=== PATIENT | male | born 1940 | race Caucasian/White ===

== ENCOUNTER 2019-12-31 12:38 | Outpatient (CLI) | payer MEDICARE, SELFPAY ==
[2019-12-31 13:36] LABS: Prostate Specific Antigen 0.17 ng/mL (0-4)
[2019-12-31] MEDS: lidocaine 1% INJ 20 mL INJECTION (15:40)
[2019-12-31] MEDS: goserelin acetate 10.8 mg Implant IM (15:52)
--- NOTE | 2019-12-31 16:36 | ONC FU_ITS ---
Dr. Castillo follow up note Patient: Tonye Rodriguez Unit #: [id number]: 1940 Dicatated By: Louis Castillo M.D.Date of Visit:Dec 31, 2019 Onc Med Follow-up/Prog Note History of Present Illness: Mr. Toney rodriguez, 79-year-old gentleman with history of process cancer initially diagnosed in 2004 at that time he underwent retropubic prostatectomy no further treatment was considered but observation alone and he did well until March 2017 when he developed abdominal pain and diagnosed with acute appendicitis for which he underwent appendicectomy and preop labs which include PSA showed his PSA was 3 compared to 1 earlier, during follow-up , at that time he was referred to Dr. Markham and he was observed in urology clinic with serial PSA levels and LUDY on a regular basis. In June 2017 his PSA was 7.4 And on 09/29/2017 his PSA was 10.2 and repeat on 10/05/2017 it was 13.3 and on 02/27/2018 his PSA gone up to 20.7 with normal LUDY and at that time CT scan of abdomen pelvis was ordered which shows no pelvic lymphadenopathy no osteoblastic or osteolytic bone disease. Earlier on 11/24/2017 he had bone scan done which shows no evidence of bone metastases.Elevated PSA but stable now being observed with active surveillance Follow-up bone scan done on 01/29/2019 shows no evidence of bone metastases and CT scan of abdomen pelvis done on 01/29/2019 showed status Post prostatectomy, no evidence of pelvic or retroperitoneal lymphadenopathy. CT PET scan done on 03/19/2019 showed prostate bed recurrence and urinary bladder involvement and PSA checked done 03/26/2019 is 26.79 Started on ADT with Casodex/Zoladex on 04/01/2019 concurrent radiation therapy to the prostate bed was added on 04/15/2019 and f/u PSA on 04/30/2019 was 2.58 compared to pretreatment PSA 26.7 On 03/26/2019 Came For follow-up, denies any specific complaints except occasionally hot flashes otherwise no fever or chills, no diarrhea constipation, no dysuria. Tolerating Zoladex well otherwise Medications: Ascorbic Acid 1 Tablet (of 1000 mg) Oral daily, Aspirin 1 Tablet (of 325 mg) Tablet, enteric coated Oral daily, AZO Urinary Pain Relief 1 Tablet (of 95 mg) Tablet Oral daily PRN, Calcium + D3 1 Tablet (of 600-800 mg - Units) Oral daily, Cholecalciferol 1 Capsule (of 4000 Units) Oral daily, Lopid 1 Tablet (of 600 mg) Oral b.i.d., Men 50 plus multivitamin Tablet, Metoprolol Succinate ER 1 Tablet (of 50 mg) Tablet SR 24 HR Oral daily, Norvasc 1 Tablet (of 5 mg) Oral daily, Potassium Chloride Jodi ER 2 Tablet (of 20 meq) Tablet, controlled release Oral b.i.d., Probiotic oral 1 Tablet daily, Vitamin E 1 Capsule (of 400 Units) Oral daily, Zantac 1 Tablet (of 300 mg) Oral daily, Zocor 1 Tablet (of 20 mg) Oral at bedtime Allergies: chocolate Review of Systems: Constitutional - Appetite is fair and weight is stable. No fever, chills, hot flashes, or night sweats. Energy level is good, ENMT - No sinus congestion/drainage. No mouth sores. No sore throat or difficulty swallowing, Hematologic/Lymphatic - No abnormal bruising or bleeding, Respiratory - No shortness of breath. No cough. No pleuritic pain or hemoptysis, Cardiovascular - No angina pain. No palpitations, Gastrointestinal - No nausea or vomiting. No heartburn or acid reflux. No diarrhea or constipation. No blood in the stool or black stools, Genitourinary (M) - Pt reports frequent urination with occasional incontinence, Musculoskeletal - No joint or bone pain, Neurologic - No headache or dizziness. No numbness/paresthesias or other focal neurologic symptoms, Psychiatric - No anxiety or depression. No insomnia. Vital Signs: Performed on Dec 31, 2019 14:30 Height - 68.00 in Weight - 182.4 lbs (LOW) BSA - 1.97 sq.m BMI - 27.73 Temperature - 98.6 F Pulse - 68 /min Respiration - 18 /min BP - 151/77 mm(hg) (HIGH) O2 Sat - 98 % Pain - 0 Performance Status: 0 - Fully active, able to carry on all predisease activities without restrictions. (ECOG) Physical Examination: ENMT - No oral exudates, ulcers, masses, thrush or mucositis. Oropharynx clear. Tongue normal, Respiratory - Lungs are clear to auscultation without rhonchi or wheezing, Cardiovascular - Regular rate and rhythm of heart, Abdomen - Non-tender, non-distended, Good bowel sounds. No guarding or rebound tenderness. No pulsatile masses, Extremities - no edema. Lab/Imaging: Test performed on Oct 01, 2019 13:00 Testosterone, Total 4.1 ng/dL PSA 0.30 ng/mL Impression: History of prostrate cancer status post retropubic prostatectomy in 2004 at that time no adjuvant therapy was considered. Now with biochemical recurrence with elevated PSA level and normal bone scan and CT scan of abdomen pelvis PSA checked on 02/27/2018 was 20.7 and bone scan done on 11/24/2017 showed no evidence of bone metastases CT scan of abdomen pelvis done on 03/08/2018 showed no evidence of pelvic lymphadenopathy or local recurrence CT PET scan done on 03/19/2019 showed there is intense FDG uptake in the central portion of the prostate, including prosthetic urethra, posterior aspect of the urinary bladder to the right of the midline and in the anterior aspect of urinary bladder maximum SUV of urinary bladder focuses 6.32 posteriorly and 5.40 superior and prostrate bed 6.79 PSA checked on 03/26/2019 has gone up to 26.79 compared to 23.19 on 01/29/2019 and 18.10 on 05/31/2018 Started on neoadjuvant Casodex/Zoladex on 04/01/2019 and concurrent radiation therapy to the prostate bed added on 04/15/2019 and a follow-up PSA done on 04/30/2019 showed excellent response, it was 2.58 compared to 26.7 On 03/26/2019 Casodex was used to prevent tumor flare and was discontinued after one month on 04/30/2019 to minimize ADT related toxicity Plan: Discussed with patient regarding his labs PSA 0.17, testosterone 5.0 Clinically, patient is doing well, with no signs symptoms suggestive of recurrence of disease, follow-up lab shows further improvement his PSA now down to 0.17 compared to 0.30 on 10/01/2090 tolerating 3 monthly Zoladex well, we'll proceed with next dose today Return to clinic in 3 months with a PSA and Zoladex injection. We will also review his DEXA scan and make plan accordingly. In the meantime continue vitamin D and calcium supplement. Signed By: Louis Castillo M.D. <<Signature on File>>
== END 2019-12-31 12:39 | disposition home or self-care (01) ==
LOC: ONCMED 12:42
PROVIDERS: Family Provider Family Medicine; PCP Family Medicine; Visit Provider Internal Medicine Hematology & Oncology
DX: C61 Malignant neoplasm of prostate (principal); C79.11 Secondary malignant neoplasm of bladder; Z79.818 Long term (current) use of other agents affecting estrogen receptors and estrogen levels; Z79.899 Other long term (current) drug therapy; Z90.79 Acquired absence of other genital organ(s); Z92.3 Personal history of irradiation
CPT/HCPCS: 84153; 84403; 96372; 96402; 99214; J2001; J9202

== ENCOUNTER 2020-04-01 14:15 | Outpatient (CLI) | payer MEDICARE, SELFPAY ==
[2020-04-01] MEDS: lidocaine 1% INJ 20 mL INJECTION (16:26)
[2020-04-01] MEDS: goserelin acetate 10.8 mg Implant IM (16:27)
--- NOTE | 2020-04-01 16:37 | ONC FU_ITS ---
Dr. Castillo follow up note Patient: Toney Rodriguez Unit #: [id number]: 1940 Dicatated By: Louis Castillo M.D.Date of Visit:Apr 01, 2020 Onc Med Follow-up/Prog Note History of Present Illness: Mr. Toney rodriguez, 79-year-old gentleman with history of process cancer initially diagnosed in 2004 at that time he underwent retropubic prostatectomy no further treatment was considered but observation alone and he did well until March 2017 when he developed abdominal pain and diagnosed with acute appendicitis for which he underwent appendicectomy and preop labs which include PSA showed his PSA was 3 compared to 1 earlier, during follow-up , at that time he was referred to Dr. Markham and he was observed in urology clinic with serial PSA levels and LUDY on a regular basis. In June 2017 his PSA was 7.4 And on 09/29/2017 his PSA was 10.2 and repeat on 10/05/2017 it was 13.3 and on 02/27/2018 his PSA gone up to 20.7 with normal LUDY and at that time CT scan of abdomen pelvis was ordered which shows no pelvic lymphadenopathy no osteoblastic or osteolytic bone disease. Earlier on 11/24/2017 he had bone scan done which shows no evidence of bone metastases.Elevated PSA but stable now being observed with active surveillance Follow-up bone scan done on 01/29/2019 shows no evidence of bone metastases and CT scan of abdomen pelvis done on 01/29/2019 showed status Post prostatectomy, no evidence of pelvic or retroperitoneal lymphadenopathy. CT PET scan done on 03/19/2019 showed prostate bed recurrence and urinary bladder involvement and PSA checked done 03/26/2019 is 26.79 Started on ADT with Casodex/Zoladex on 04/01/2019 concurrent radiation therapy to the prostate bed was added on 04/15/2019 and f/u PSA on 04/30/2019 was 2.58 compared to pretreatment PSA 26.7 On 03/26/2019 Came for follow-up, denies any specific complaint except occasional hot flashes and mood swings and testicular atrophy. Other than that no fever chills no nausea or vomiting no diarrhea constipation no hematuria or dysuria. Tolerating Zoladex well Medications: Ascorbic Acid 1 Tablet (of 1000 mg) Oral daily, Aspirin 1 Tablet (of 325 mg) Tablet, enteric coated Oral daily, AZO Urinary Pain Relief 1 Tablet (of 95 mg) Tablet Oral daily PRN, Calcium + D3 1 Tablet (of 600-800 mg - Units) Oral daily, Cholecalciferol 1 Capsule (of 4000 Units) Oral daily, Lopid 1 Tablet (of 600 mg) Oral b.i.d., Men 50 plus multivitamin Tablet, Metoprolol Succinate ER 1 Tablet (of 50 mg) Tablet SR 24 HR Oral daily, Norvasc 1 Tablet (of 5 mg) Oral daily, Potassium Chloride Jodi ER 2 Tablet (of 20 meq) Tablet, controlled release Oral b.i.d., Probiotic oral 1 Tablet daily, Vitamin E 1 Capsule (of 400 Units) Oral daily, Zantac 1 Tablet (of 300 mg) Oral daily, Zocor 1 Tablet (of 20 mg) Oral at bedtime Allergies: chocolate Review of Systems: Review of Systems is not available for this patient. Vital Signs: Performed on Apr 01, 2020 15:16 Height - 68.00 in Weight - 182.4 lbs BSA - 1.97 sq.m BMI - 27.73 Temperature - 97.7 F (LOW) Pulse - 60 /min Respiration - 24 /min BP - 150/72 mm(hg) (HIGH) O2 Sat - 98 % Pain - 0 Performance Status: 0 - Fully active, able to carry on all predisease activities without restrictions. (ECOG) Physical Examination: ENMT - No mouth sores, no thrush, no jaundice, Respiratory - Lungs are clear, Cardiovascular - Regular rate and rhythm of heart, Abdomen - Soft, bowel sounds present, Extremities - No visible edema or rash. Lab/Imaging: Test performed on Dec 31, 2019 12:50 Testosterone, Total 5.0 ng/dL PSA 0.17 ng/mL Impression: History of prostrate cancer status post retropubic prostatectomy in 2004 at that time no adjuvant therapy was considered. Now with biochemical recurrence with elevated PSA level and normal bone scan and CT scan of abdomen pelvis PSA checked on 02/27/2018 was 20.7 and bone scan done on 11/24/2017 showed no evidence of bone metastases CT scan of abdomen pelvis done on 03/08/2018 showed no evidence of pelvic lymphadenopathy or local recurrence CT PET scan done on 03/19/2019 showed there is intense FDG uptake in the central portion of the prostate, including prosthetic urethra, posterior aspect of the urinary bladder to the right of the midline and in the anterior aspect of urinary bladder maximum SUV of urinary bladder focuses 6.32 posteriorly and 5.40 superior and prostrate bed 6.79 PSA checked on 03/26/2019 has gone up to 26.79 compared to 23.19 on 01/29/2019 and 18.10 on 05/31/2018 Started on neoadjuvant Casodex/Zoladex on 04/01/2019 and concurrent radiation therapy to the prostate bed added on 04/15/2019 and a follow-up PSA done on 04/30/2019 showed excellent response, it was 2.58 compared to 26.7 On 03/26/2019 Casodex was used to prevent tumor flare and was discontinued after one month on 04/30/2019 to minimize ADT related toxicity Plan: Discussed with patient regarding his question and concerns, his follow-up PSA is pending. And patient was reassured that most of his symptoms are due to hormonal withdrawal due to ADT and patient said they are tolerable at this point, discussed about treatment option including continue with Zoladex as long as tolerated or if there is a worsening of symptom at that time either change to intermittent therapy versus observation. Patient would prefer to continue treatment for the time being and if there is any worsening of symptom he may consider intermittent therapy approach. We will proceed with his next 3-month dose of Zoladex today and once we have a PSA level available to us, we will call the patient with the results. As far as DEXA scan which was done on August 26, 2019 is concern, patient has osteopenia appropriate to his age, now being treated with vitamin D and calcium we will continue to monitor and if there is a worsening may consider intervention. Return to clinic in 3 months with PSA Signed By: Louis Castillo M.D. <<Signature on File>>
[2020-04-01 18:12] LABS: Prostate Specific Antigen 0.136 ng/mL (0-4)
== END 2020-04-01 14:16 | disposition home or self-care (01) ==
LOC: ONCMED 14:18
PROVIDERS: PCP Family Medicine; Visit Provider Internal Medicine Hematology & Oncology
DX: C61 Malignant neoplasm of prostate (principal); M85.80 Other specified disorders of bone density and structure, unspecified site; Z79.818 Long term (current) use of other agents affecting estrogen receptors and estrogen levels; Z90.79 Acquired absence of other genital organ(s)
CPT/HCPCS: 84153; 96372; 96402; 99214; J2001; J9202

== ENCOUNTER 2020-07-02 13:42 | Outpatient (CLI) | payer MEDICARE, SELFPAY ==
[2020-07-02 15:07] LABS: Prostate Specific Antigen 0.112 ng/mL (0-4)
[2020-07-02] MEDS: lidocaine 1% INJ 20 mL INJECTION (16:00)
[2020-07-02] MEDS: goserelin acetate 10.8 mg Implant IM (16:10)
--- NOTE | 2020-07-11 21:06 | ONC FU_ITS ---
[facility] Patient Note Patient: Toney Rodriguez Unit #: [id number]: 1940 Dictated By: Jeff WuDate of Visit: Jul 02, 2020 Onc MED Follow-Up/Prog Note Chief Complaint: Prostate cancer History of Present Illness: Mr. Rodriguez is a 79-year-old gentleman with history of prostate cancer initially diagnosed in 2004. At that time, he underwent retropubic prostatectomy and no further treatment was considered. He had observation alone and he did well until March 2017. He developed abdominal pain and was diagnosed with acute appendicitis for which he underwent appendicectomy. His preop labs included a PSA and it showed his PSA was 3 compared to 1 earlier. He was referred to Dr. Markham and he was observed in urology clinic with serial PSA levels and LUDY on a regular basis. In June 2017, his PSA was 7.4 and on 09/29/2017 his PSA was 10.2. Repeat PSA on 10/05/2017 was 13.3 and on 02/27/2018 his PSA gone up to 20.7 with normal LUDY. A CT scan of abdomen pelvis was ordered and reported no pelvic lymphadenopathy, no osteoblastic or osteolytic bone disease. On 11/24/2017 he had a bone scan done which reported no evidence of bone metastases. Elevated PSA but stable and he continued with active surveillance. Follow-up bone scan done on 01/29/2019 reported no evidence of bone metastases and CT scan of abdomen pelvis done on 01/29/2019 reported status Post prostatectomy, no evidence of pelvic or retroperitoneal lymphadenopathy. CT PET scan done on 03/19/2019 showed prostate bed recurrence and urinary bladder involvement and PSA checked done 03/26/2019 is 26.79 Started on ADT with Casodex/Zoladex on 04/01/2019 concurrent radiation therapy to the prostate bed was added on 04/15/2019 and f/u PSA on 04/30/2019 was 2.58 compared to pretreatment PSA 26.7 On 03/26/2019 Mr Rodriguez is here today for followup. He is due for Zoladex. He has no new concerns today other than he states that his teeth are breaking off . He states his had like 5 break over the last year. He does see a dentist in 1 week. He states he does good oral hygiene and has for years so is uncertain as to why his teeth would be such a problem all of a sudden. He denies any dramatic changes in his diet. He denies any other problems. He has had no fractures that he is aware of. He is had no bone pain. He denies any fever or chills. He denies mouth sores, sore throat or difficulty swallowing. He states that he has normal bowels and bladder for him. He does frequently urinate at night but this is not new and is stable for him. He denies any lower extremity edema. He remains very active. He states his appetite is good. His ECOG is 0. Past Medical History: Hyperlipidemia Hypertension Past Surgical History: Hydrocele repair Appendectomy in 2017 Colonoscopy in 2009 Prostatectomy in 2004 Esophagus repair in 1940 Allergies: chocolate Medications: Ascorbic Acid 1 Tablet (of 1000 mg) Oral daily Aspirin 1 Tablet (of 325 mg) Tablet, enteric coated Oral daily AZO Urinary Pain Relief 1 Tablet (of 95 mg) Tablet Oral daily PRN Calcium + D3 1 Tablet (of 600-800 mg - Units) Oral daily Cholecalciferol 1 Capsule (of 4000 Units) Oral daily Lopid 1 Tablet (of 600 mg) Oral b.i.d. Men 50 plus multivitamin Tablet Metoprolol Succinate ER 1 Tablet (of 50 mg) Tablet SR 24 HR Oral daily Norvasc 1 Tablet (of 5 mg) Oral daily Potassium Chloride Jodi ER 2 Tablet (of 20 meq) Tablet, controlled release Oral b.i.d. Probiotic oral 1 Tablet daily Vitamin E 1 Capsule (of 400 Units) Oral daily Zantac 1 Tablet (of 300 mg) Oral daily Zocor 1 Tablet (of 20 mg) Oral at bedtime Family History: Mr. Rodriguez's mother at age 80: myocardial infarction, and Cervical Cancer. Mr. Rodriguez's father at age 87: renal failure, and type II diabetes. His maternal grandfather is : Rectal Cancer. Social History: Mr. Rodriguez is and he is retired. Mr. Rodriguez quit smoking 52 years ago but had smoked 1.0 pack/day for 13 years. He drinks occasionally. Mr. Rodriguez reports the following support systems: lives with spouse, significant other, family, or friends. His diet consists of regular meals. Review Of Symptoms: Constitutional Denies fevers, chills, worsening night sweats, excessive fatigue or weight loss. Has hot flashes but stable. Allergic/Immunologic No reactions. Eyes Denies significant visual changes. No diplopia. No amaurosis. ENMT Denies changes in hearing, sore throat, mouth sores, difficulty or changes in swallowing ability, and/or sinus drainage. Concerned about teeth breaking...he states he has broken 5 teeth in the last several months. he is seeing a dentist in the next 1-2 weeks. Hematologic/Lymphatic Denies easy bruising or bleeding. The patient denies any tender or palpable lymph nodes. Respiratory Denies dyspnea on exertion, chest pain, cough or hemoptysis. Denies orthopnea. Cardiovascular Denies anginal chest pain, palpitations or orthopnea. Gastrointestinal Denies nausea, vomiting, diarrhea, GI bleeding, or constipation. Denies change in bowel habits and/or stool color, no heartburn or early satiety. Genitourinary (M) Denies hematuria, dysuria, increased frequency, urgency, hesitancy or incontinence. Musculoskeletal Denies joint pain, swelling or redness. No decreased range of motion. Integumentary Denies chronic rashes, inflammation, ulcerations or skin changes. Neurologic Denies headache, blurred vision, and no areas of focal weakness or numbness. Normal gait. No sensory problems. Psychiatric Denies insomnia, depression, clemente or mood swings. Vital Signs: Performed on Jul 02, 2020 15:06 Height - 68.00 in Weight - 180.6 lbs (LOW) BSA - 1.96 sq.m BMI - 27.46 Temperature - 97.7 F (LOW) Pulse - 62 /min Respiration - 16 /min BP - 146/73 mm(hg) (HIGH) O2 Sat - 97 % Pain - 0,0 - Fully active, able to carry on all predisease activities without restrictions. (ECOG) Physical Examination: Constitutional Alert, oriented, no acute distress. Skin pink, warm and dry. Head Normocephalic; atraumatic. Eyes Conjunctivae and sclerae are clear and without icterus. Pupils are reactive and equal. Neck Supple without masses or thyromegaly. No jugular venous distension. Hematologic/Lymphatic No petechiae or purpura. No tender or palpable lymph nodes in the cervical or supraclavicular areas. Respiratory Lungs are clear to auscultation without rhonchi or wheezing. Cardiovascular Regular rate and rhythm of heart without murmurs,clicks, gallops or rubs. Abdomen Non-tender, non-distended, no masses or ascites. Back/Spine Non-tender to palpation. Extremities No visible deformities, no cyanosis, clubbing or edema. Musculoskeletal No tenderness or swelling, normal range of motion without obvious weakness. Integumentary No rashes or lesions. Neurologic No sensory or motor deficits, normal cerebellar function, normal gait. Psychiatric Alert and oriented times three. Coherent speech. Verbalizes understanding of our discussions today. Laboratory:Test performed on Jul 02, 2020 14:16 PSA 0.112 ng/mL Impression: History of prostrate cancer status post retropubic prostatectomy in 2004 at that time no adjuvant therapy was considered. Now with biochemical recurrence with elevated PSA level and normal bone scan and CT scan of abdomen pelvis PSA checked on 02/27/2018 was 20.7 and bone scan done on 11/24/2017 showed no evidence of bone metastases CT scan of abdomen pelvis done on 03/08/2018 showed no evidence of pelvic lymphadenopathy or local recurrence CT PET scan done on 03/19/2019 showed there is intense FDG uptake in the central portion of the prostate, including prosthetic urethra, posterior aspect of the urinary bladder to the right of the midline and in the anterior aspect of urinary bladder maximum SUV of urinary bladder focuses 6.32 posteriorly and 5.40 superior and prostrate bed 6.79 PSA checked on 03/26/2019 has gone up to 26.79 compared to 23.19 on 01/29/2019 and 18.10 on 05/31/2018 Started on neoadjuvant Casodex/Zoladex on 04/01/2019 and concurrent radiation therapy to the prostate bed added on 04/15/2019 and a follow-up PSA done on 04/30/2019 showed excellent response, it was 2.58 compared to 26.7 On 03/26/2019 Casodex was used to prevent tumor flare and was discontinued after one month on 04/30/2019 to minimize ADT related toxicity Plan: 1. Proceed with Zoladex today as scheduled. 2. There has been discussion around possibly starting him on Zometa???as he has osteopenia on a bone density scan from August 26, 2019. Thus far he is on only been on calcium and vitamin D. Given the concerns with his teeth I did not attempt to start any Xgeva today. He will be due for a follow-up bone density scan in August 2021 unless symptoms arise a suggest imaging prior to his routine scans. 3. His PSA from today was reported at 0.112. A copy of the flow sheet was given to him. 4. We will plan to see him back in 3 months with CBC CMP PSA and follow-up he will be due for Zoladex at that time. 5. His bone density from 08/26/2019 reports a bone mineral density in L1-L4 with a T score reported at -1.3. The left femoral neck bone mineral density T score was -1.3 and left total hip bone mineral density T score was -0.7. 6. Mr. Rodriguez was encouraged to contact us in the interim should questions or problems arise. Signed By: Jeff Wu-, CNP Louis Castillo MD <<Signature on File>>
== END 2020-07-02 13:43 | disposition home or self-care (01) ==
LOC: ONCMED 13:47
PROVIDERS: PCP Family Medicine; Visit Provider Nurse Practitioner
DX: C61 Malignant neoplasm of prostate (principal); M85.80 Other specified disorders of bone density and structure, unspecified site; K08.89 Other specified disorders of teeth and supporting structures; Z90.79 Acquired absence of other genital organ(s); Z92.3 Personal history of irradiation; Z79.818 Long term (current) use of other agents affecting estrogen receptors and estrogen levels; Z87.891 Personal history of nicotine dependence
CPT/HCPCS: 36415; 81001; 84153; 96372; 96402; 99214; J9202

== ENCOUNTER → 2020-08-25 16:53 | Outpatient (BNVA) | payer MEDICARE, SELFPAY | PROVIDERS: PCP Family Medicine; Visit Provider Dermatology | DX: D48.9 Neoplasm of uncertain behavior, unspecified (principal) | CPT/HCPCS: 88304 ==

== ENCOUNTER 2020-10-07 14:27 | Outpatient (CLI) | payer MEDICARE, SELFPAY ==
[2020-10-07 15:04] LABS: Basophils % 0.9 %; Eosinophils # 0.2 10^3/uL (0.0-0.8); Eosinophils % 3.5 %; Hematocrit 36.5 % (42.0-52.0); Hemoglobin 12.3 g/dL (11.7-16.6); Lymphocytes # 1.1 10^3/uL (0.8-4.8); Lymphocytes % 22.7 %; Mean Corpuscular HGB Conc 33.7 g/dL (30.0-36.0); Mean Corpuscular Hemoglobin 31.5 pg (28.0-34.0); Mean Corpuscular Volume 93.4 fL (80-94); Mean Platelet Volume 10.7 fL (7.4-10.4); Monocytes # 0.5 10^3/uL (0.2-0.9); Neutrophils # 2.84 10^3/uL (1.8-7.7); Neutrophils % 61.5 %; Nucleated Red Blood Cells % 0 %; Platelet Count 244 10^3/cmm (130-400); Red Blood Count 3.91 10^6/uL (4.1-5.3); Red Cell Distribution Width 12.1 % (12.1-15.1); White Blood Count 4.6 10^3/uL (4.0-10.0)
[2020-10-07 15:36] LABS: Alanine Aminotransferase 22 U/L (0-41); Albumin Level 4.3 g/dL (3.5-5.2); Alkaline Phosphatase 64 IU/L (40-130); Aspartate Amino Transferase 22 U/L (0-40); Blood Urea Nitrogen 32 mg/dL (8-23); Calcium 9.9 mg/dL (8.5-10.5); Carbon Dioxide 24 mmol/L (22-29); Chloride 102 mmol/L (98-107); Globulin 2.9 g/dL (1.3-4.6); Glucose 132 mg/dL (65-115); Osmolality Calculated 295 mOsm/kg (285-295); Sodium 138 mmol/L (136-145); Total Bilirubin 0.2 mg/dL (0.15-1.2); Total Protein 7.2 g/dL (6.6-8.7)
[2020-10-07 15:50] LABS: Prostate Specific Antigen 0.079 ng/mL (0-4); Testosterone Total 2.5 ng/dL (193-740)
--- NOTE | 2020-10-07 16:59 | ONC FU_ITS ---
Dr. Castillo follow up note Patient: Toney Rodriguez Unit #: [id number]: 1940 Dicatated By: Louis Castillo M.D.Date of Visit:Oct 07, 2020 Onc Med Follow-up/Prog Note History of Present Illness: Mr. Rodriguez is a 80-year-old gentleman with history of prostate cancer initially diagnosed in 2004. At that time, he underwent retropubic prostatectomy and no further treatment was considered. He had observation alone and he did well until March 2017. He developed abdominal pain and was diagnosed with acute appendicitis for which he underwent appendicectomy. His preop labs included a PSA and it showed his PSA was 3 compared to 1 earlier. He was referred to Dr. Markham and he was observed in urology clinic with serial PSA levels and LUDY on a regular basis. In June 2017, his PSA was 7.4 and on 09/29/2017 his PSA was 10.2. Repeat PSA on 10/05/2017 was 13.3 and on 02/27/2018 his PSA gone up to 20.7 with normal [address]UDY. A CT scan of abdomen pelvis was ordered and reported no pelvic lymphadenopathy, no osteoblastic or osteolytic bone disease. On 11/24/2017 he had a bone scan done which reported no evidence of bone metastases. Elevated PSA but stable and he continued with active surveillance. Follow-up bone scan done on 01/29/2019 reported no evidence of bone metastases and CT scan of abdomen pelvis done on 01/29/2019 reported status Post prostatectomy, no evidence of pelvic or retroperitoneal lymphadenopathy. CT PET scan done on 03/19/2019 showed prostate bed recurrence and urinary bladder involvement and PSA checked done 03/26/2019 is 26.79 Started on ADT with Casodex/Zoladex on 04/01/2019 concurrent radiation therapy to the prostate bed was added on 04/15/2019 and f/u PSA on 04/30/2019 was 2.58 compared to pretreatment PSA 26.7 On 03/26/2019 Came for follow-up, denies any specific complaint except hot flashes but no fever chills, no nausea or vomiting, no diarrhea constipation, no new bony pains, no dysuria or hematuria, tolerating Zoladex well otherwise Medications: Ascorbic Acid 1 Tablet (of 1000 mg) Oral daily, Aspirin 1 Tablet (of 325 mg) Tablet, enteric coated Oral daily, AZO Urinary Pain Relief 1 Tablet (of 95 mg) Tablet Oral daily PRN, Calcium + D3 1 Tablet (of 600-800 mg - Units) Oral daily, Cholecalciferol 1 Capsule (of 4000 Units) Oral daily, Lopid 1 Tablet (of 600 mg) Oral b.i.d., Men 50 plus multivitamin Tablet, Metoprolol Succinate ER 1 Tablet (of 50 mg) Tablet SR 24 HR Oral daily, Norvasc 1 Tablet (of 5 mg) Oral daily, Potassium Chloride Jodi ER 2 Tablet (of 20 meq) Tablet, controlled release Oral b.i.d., Probiotic oral 1 Tablet daily, Vitamin E 1 Capsule (of 400 Units) Oral daily, Zantac 1 Tablet (of 300 mg) Oral daily, Zocor 1 Tablet (of 20 mg) Oral at bedtime Allergies: chocolate Review of Systems: Constitutional - Appetite is fair and weight is stable. No fever, chills, positive for hot flashes, no night sweats. Energy level is good, ENMT - No sinus congestion/drainage. No mouth sores. No sore throat or difficulty swallowing, Hematologic/Lymphatic - No abnormal bruising or bleeding, Respiratory - No shortness of breath. No cough. No pleuritic pain or hemoptysis, Cardiovascular - No angina pain. No palpitations, Gastrointestinal - No nausea or vomiting. No heartburn or acid reflux. No diarrhea or constipation. No blood in the stool or black stools, Genitourinary (M) - Pt reports frequent urination with occasional incontinence, Musculoskeletal - No joint or bone pain, Neurologic - No headache or dizziness. No numbness/paresthesias or other focal neurologic symptoms, Psychiatric - No anxiety or depression. No insomnia. Vital Signs: Performed on Oct 07, 2020 16:21 Height - 68.00 in Weight - 184.4 lbs (HIGH) BSA - 1.97 sq.m BMI - 28.04 Temperature - 98.5 F Pulse - 69 /min Respiration - 18 /min BP - 156/80 mm(hg) (HIGH) O2 Sat - 97 % Pain - 0 Performance Status: 0 - Fully active, able to carry on all predisease activities without restrictions. (ECOG) Physical Examination: ENMT - No mouth sores, no thrush, no jaundice, Respiratory - Lungs are clear to auscultation, Cardiovascular - Regular rate and rhythm of heart, Abdomen - Soft, bowel sounds present, Extremities - No visible edema or rash. Lab/Imaging: Test performed on Jul 02, 2020 14:16 PSA 0.112 ng/mL Impression: History of prostrate cancer status post retropubic prostatectomy in 2004 at that time no adjuvant therapy was considered. Now with biochemical recurrence with elevated PSA level and normal bone scan and CT scan of abdomen pelvis PSA checked on 02/27/2018 was 20.7 and bone scan done on 11/24/2017 showed no evidence of bone metastases CT scan of abdomen pelvis done on 03/08/2018 showed no evidence of pelvic lymphadenopathy or local recurrence CT PET scan done on 03/19/2019 showed there is intense FDG uptake in the central portion of the prostate, including prosthetic urethra, posterior aspect of the urinary bladder to the right of the midline and in the anterior aspect of urinary bladder maximum SUV of urinary bladder focuses 6.32 posteriorly and 5.40 superior and prostrate bed 6.79 PSA checked on 03/26/2019 has gone up to 26.79 compared to 23.19 on 01/29/2019 and 18.10 on 05/31/2018 Started on neoadjuvant Casodex/Zoladex on 04/01/2019 and concurrent radiation therapy to the prostate bed added on 04/15/2019 and a follow-up PSA done on 04/30/2019 showed excellent response, it was 2.58 compared to 26.7 On 03/26/2019 Casodex was used to prevent tumor flare and was discontinued after one month on 04/30/2019 to minimize ADT related toxicity Plan: Discussed with patient regarding his labs white blood count 4.6 hemoglobin 12.3 hematocrit 36.5 platelets 244,000 CMP within normal limit except creatinine 1.7 which is stable and PSA 0.079 compared to 0.112 on July 02, 2020 Clinically, patient doing well with no new signs symptom suggestive of recurrence/progression of disease, his follow-up labs shows PSA continue to improve now 0.079 compared to 0.112 in June 2020. Patient is tolerating maintenance therapy with Zoladex every 3 months well but with expected side effects. We will proceed with next 3 monthly dose of Zoladex today and return to clinic in 3 months with PSA Mild renal insufficiency, his creatinine has been stable and now being followed by PMD, will suggest nephrology consult. Signed By: Louis Castillo M.D. <<Signature on File>>
[2020-10-07] MEDS: goserelin acetate 10.8 mg Implant IM (17:07)
[2020-10-07] MEDS: lidocaine 1% INJ 20 mL INJECTION (17:13)
== END 2020-10-07 14:28 | disposition home or self-care (01) ==
LOC: ONCMED 14:29
PROVIDERS: PCP Family Medicine; Visit Provider Internal Medicine Hematology & Oncology
DX: C61 Malignant neoplasm of prostate (principal); R97.20 Elevated prostate specific antigen [PSA]; N17.9 Acute kidney failure, unspecified; Z79.818 Long term (current) use of other agents affecting estrogen receptors and estrogen levels
CPT/HCPCS: 80053; 84153; 84403; 85025; 96372; 96402; 99214; J9202

== ENCOUNTER → 2020-12-30 13:40 | Outpatient (BNVA) | payer MEDICARE, SELFPAY | PROVIDERS: PCP Family Medicine; Visit Provider Urology | DX: N39.41 Urge incontinence (principal); N32.0 Bladder-neck obstruction; C61 Malignant neoplasm of prostate; I10 Essential (primary) hypertension | CPT/HCPCS: 81003 ==

== ENCOUNTER 2021-01-18 08:34 | Outpatient (CLI) | payer MEDICARE, SELFPAY ==
[2021-01-18 09:40] LABS: Prostate Specific Antigen 0.061 ng/mL (0-4)
[2021-01-18] MEDS: lidocaine 1% INJ 20 mL INJECTION (10:45)
[2021-01-18] MEDS: goserelin acetate 10.8 mg Implant IM (11:00)
--- NOTE | 2021-01-18 15:28 | ONC FU_ITS ---
Dr. Castillo follow up note Patient: Toney Rodriguez Unit #: [id number]: 1940 Dicatated By: Louis Castillo M.D.Date of Visit:Jan 18, 2021 Onc Med Follow-up/Prog Note History of Present Illness: Mr. Rodriguez is a 80-year-old gentleman with history of prostate cancer initially diagnosed in 2004. At that time, he underwent retropubic prostatectomy and no further treatment was considered. He had observation alone and he did well until March 2017. He developed abdominal pain and was diagnosed with acute appendicitis for which he underwent appendicectomy. His preop labs included a PSA and it showed his PSA was 3 compared to 1 earlier. He was referred to Dr. Markham and he was observed in urology clinic with serial PSA levels and LUDY on a regular basis. In June 2017, his PSA was 7.4 and on 09/29/2017 his PSA was 10.2. Repeat PSA on 10/05/2017 was 13.3 and on 02/27/2018 his PSA gone up to 20.7 with normal LUDY. A CT scan of abdomen pelvis was ordered and reported no pelvic lymphadenopathy, no osteoblastic or osteolytic bone disease. On 11/24/2017 he had a bone scan done which reported no evidence of bone metastases. Elevated PSA but stable and he continued with active surveillance. Follow-up bone scan done on 01/29/2019 reported no evidence of bone metastases and CT scan of abdomen pelvis done on 01/29/2019 reported status Post prostatectomy, no evidence of pelvic or retroperitoneal lymphadenopathy. CT PET scan done on 03/19/2019 showed prostate bed recurrence and urinary bladder involvement and PSA checked done 03/26/2019 is 26.79 Started on ADT with Casodex/Zoladex on 04/01/2019 concurrent radiation therapy to the prostate bed was added on 04/15/2019 and f/u PSA on 04/30/2019 was 2.58 compared to pretreatment PSA 26.7 On 03/26/2019 Came for follow-up, denies any specific complaints, no fever chills, no nausea or vomiting, no diarrhea constipation, no dysuria, no new bony pains but hot flashes and generalized weakness and fatigue otherwise tolerating Zoladex well Medications: Ascorbic Acid 1 Tablet (of 1000 mg) Oral daily, Aspirin 1 Tablet (of 325 mg) Tablet, enteric coated Oral daily, AZO Urinary Pain Relief 1 Tablet (of 95 mg) Tablet Oral daily PRN, Calcium + D3 1 Tablet (of 600-800 mg - Units) Oral daily, Cholecalciferol 1 Capsule (of 4000 Units) Oral daily, Lopid 1 Tablet (of 600 mg) Oral b.i.d., Men 50 plus multivitamin Tablet, Metoprolol Succinate ER 1 Tablet (of 50 mg) Tablet SR 24 HR Oral daily, Norvasc 1 Tablet (of 5 mg) Oral daily, Potassium Chloride Jodi ER 2 Tablet (of 20 meq) Tablet, controlled release Oral b.i.d., Probiotic oral 1 Tablet daily, Vitamin E 1 Capsule (of 400 Units) Oral daily, Zantac 1 Tablet (of 300 mg) Oral daily, Zocor 1 Tablet (of 20 mg) Oral at bedtime Allergies: chocolate Review of Systems: Review of Systems is not available for this patient. Vital Signs: Performed on Jan 18, 2021 09:59 Height - 68.00 in Weight - 183.2 lbs (LOW) BSA - 1.97 sq.m BMI - 27.86 Temperature - 98 F (LOW) Pulse - 62 /min Respiration - 18 /min BP - 174/78 mm(hg) (HIGH) O2 Sat - 96 % Pain - 0 Fatigue - 8 Performance Status: 0 - Fully active, able to carry on all predisease activities without restrictions. (ECOG) Physical Examination: ENMT - No mouth sores, no thrush, no jaundice, Respiratory - Lungs are clear to auscultation, Cardiovascular - Regular rate and rhythm of heart, Abdomen - Soft, bowel sounds present, Extremities - No visible edema. Lab/Imaging: Test performed on Oct 07, 2020 14:45 Sodium 138 mmol/L Testosterone, Total 2.5 ng/dL Potassium 4.0 mmol/L Chloride 102 mmol/L CO2 24 mmol/L Anion Gap 16.0 BUN 32 mg/dL Creatinine 1.7 mg/dL Cr Clearance (Est) 41.69 mL/min Glucose 132 mg/dL Osmolality - Calculated 295 mOsm/kg Calcium 9.9 mg/dL Protein, Total 7.2 g/dL Albumin 4.3 g/dL Globulin 2.9 g/dL Bilirubin, Total 0.2 mg/dL ALT (SGPT) 22 U/L AST (SGOT) 22 U/L Alkaline Phosphatase 64 IU/L WBC 4.6 10 3/uL RBC 3.91 10 6/uL HGB 12.3 g/dL HCT 36.5 % MCV 93.4 fL MCH 31.5 pg MCHC 33.7 g/dL RDW 12.1 % Platelet Count 244 10 3/cmm MPV 10.7 fL Neutrophils 2.84 10 3/uL Lymphocytes 1.1 10 3/uL Monocytes 0.5 10 3/uL Eosinophils 0.2 10 3/uL Basophils 0.0 10 3/uL Neutrophil % 61.5 % Lymphocyte % 22.7 % Monocyte % 11.0 % Eosinophil % 3.5 % Basophils % 0.9 % NRBC % 0 % PSA 0.079 ng/mL Impression: History of prostrate cancer status post retropubic prostatectomy in 2004 at that time no adjuvant therapy was considered. Now with biochemical recurrence with elevated PSA level and normal bone scan and CT scan of abdomen pelvis PSA checked on 02/27/2018 was 20.7 and bone scan done on 11/24/2017 showed no evidence of bone metastases CT scan of abdomen pelvis done on 03/08/2018 showed no evidence of pelvic lymphadenopathy or local recurrence CT PET scan done on 03/19/2019 showed there is intense FDG uptake in the central portion of the prostate, including prosthetic urethra, posterior aspect of the urinary bladder to the right of the midline and in the anterior aspect of urinary bladder maximum SUV of urinary bladder focuses 6.32 posteriorly and 5.40 superior and prostrate bed 6.79 PSA checked on 03/26/2019 has gone up to 26.79 compared to 23.19 on 01/29/2019 and 18.10 on 05/31/2018 Started on neoadjuvant Casodex/Zoladex on 04/01/2019 and concurrent radiation therapy to the prostate bed added on 04/15/2019 and a follow-up PSA done on 04/30/2019 showed excellent response, it was 2.58 compared to 26.7 On 03/26/2019 Casodex was used to prevent tumor flare and was discontinued after one month on 04/30/2019 to minimize ADT related toxicity Plan: Discussed with patient regarding his labs his PSA is 0.061 compared to 0.079 previously Clinically, patient doing well with no signs symptoms testing of recurrence of disease, tolerating 3 monthly Zoladex well his PSA continue to improve and still subzero and I will get him next 3 monthly dose of Zoladex today and then return to clinic in 3 months with PSA and for Zoladex As far as hot flashes, generalized weakness and fatigue and mild gynecomastia is concerned, patient advised that the symptoms are most likely due to androgen withdrawal due to Zoladex and he is advised to maintain exercise or try mild intermittent intense exercise and watch for certain foods which cause increase in heart flashes otherwise if persist or there is a worsening, will consider intervention. So we will proceed with Zoladex today and then return to clinic in 3 months with PSA level Signed By: Louis Castillo M.D. <<Signature on File>>
== END 2021-01-18 08:35 | disposition home or self-care (01) ==
LOC: ONCMED 08:37
PROVIDERS: PCP Family Medicine; Visit Provider Internal Medicine Hematology & Oncology
DX: C61 Malignant neoplasm of prostate (principal); R23.2 Flushing; Z90.79 Acquired absence of other genital organ(s); Z92.3 Personal history of irradiation; Z79.818 Long term (current) use of other agents affecting estrogen receptors and estrogen levels
CPT/HCPCS: 84153; 96372; 96402; 99214; J9202

== ENCOUNTER 2021-04-14 13:49 | Outpatient (CLI) | payer MEDICARE, SELFPAY ==
[2021-04-14 15:21] LABS: Prostate Specific Antigen 0.055 ng/mL (0-4)
[2021-04-14] MEDS: lidocaine 1% INJ 20 mL INJECTION (16:17)
[2021-04-14] MEDS: goserelin acetate 10.8 mg Implant SUBCUT (16:35)
--- NOTE | 2021-04-14 17:11 | ONC FU_ITS ---
Dr. Castillo follow up note Patient: Toney Rodriguez Unit #: [id number]: 1940 Dicatated By: Louis Castillo M.D.Date of Visit:Apr 14, 2021 Onc Med Follow-up/Prog Note History of Present Illness: Mr. Rodriguez is a 80-year-old gentleman with history of prostate cancer initially diagnosed in 2004. At that time, he underwent retropubic prostatectomy and no further treatment was considered. He had observation alone and he did well until March 2017. He developed abdominal pain and was diagnosed with acute appendicitis for which he underwent appendicectomy. His preop labs included a PSA and it showed his PSA was 3 compared to 1 earlier. He was referred to Dr. Markham and he was observed in urology clinic with serial PSA levels and LUDY on a regular basis. In June 2017, his PSA was 7.4 and on 09/29/2017 his PSA was 10.2. Repeat PSA on 10/05/2017 was 13.3 and on 02/27/2018 his PSA gone up to 20.7 with normal LUDY. A CT scan of abdomen pelvis was ordered and reported no pelvic lymphadenopathy, no osteoblastic or osteolytic bone disease. On 11/24/2017 he had a bone scan done which reported no evidence of bone metastases. Elevated PSA but stable and he continued with active surveillance. Follow-up bone scan done on 01/29/2019 reported no evidence of bone metastases and CT scan of abdomen pelvis done on 01/29/2019 reported status Post prostatectomy, no evidence of pelvic or retroperitoneal lymphadenopathy. CT PET scan done on 03/19/2019 showed prostate bed recurrence and urinary bladder involvement and PSA checked done 03/26/2019 is 26.79 Started on ADT with Casodex/Zoladex on 04/01/2019 concurrent radiation therapy to the prostate bed was added on 04/15/2019 and f/u PSA on 04/30/2019 was 2.58 compared to pretreatment PSA 26.7 On 03/26/2019 Came for follow-up, denies any specific complaints, except off and on hot flashes no fever chills, no nausea or vomiting, no diarrhea constipation, no hematuria or dysuria, no new bony pains, tolerating 3 monthly Zoladex well Medications: Ascorbic Acid 1 Tablet (of 1000 mg) Oral daily, Aspirin 1 Tablet (of 325 mg) Tablet, enteric coated Oral daily, AZO Urinary Pain Relief 1 Tablet (of 95 mg) Tablet Oral daily PRN, Calcium + D3 1 Tablet (of 600-800 mg - Units) Oral daily, Cholecalciferol 1 Capsule (of 4000 Units) Oral daily, Lopid 1 Tablet (of 600 mg) Oral b.i.d., Men 50 plus multivitamin Tablet, Metoprolol Succinate ER 1 Tablet (of 50 mg) Tablet SR 24 HR Oral daily, Norvasc 1 Tablet (of 5 mg) Oral daily, Potassium Chloride Jodi ER 2 Tablet (of 20 meq) Tablet, controlled release Oral b.i.d., Probiotic oral 1 Tablet daily, Vitamin E 1 Capsule (of 400 Units) Oral daily, Zantac 1 Tablet (of 300 mg) Oral daily, Zocor 1 Tablet (of 20 mg) Oral at bedtime Allergies: chocolate Review of Systems: Review of Systems is not available for this patient. Vital Signs: Performed on Apr 14, 2021 16:39 Height - 68.00 in Weight - 188.8 lbs (HIGH) BSA - 1.99 sq.m BMI - 28.71 Temperature - 98 F (LOW) Pulse - 66 /min Respiration - 18 /min BP - 159/72 mm(hg) (HIGH) O2 Sat - 97 % Pain - 0 Fatigue - 6 Performance Status: 0 - Fully active, able to carry on all predisease activities without restrictions. (ECOG) Physical Examination: ENMT - No mouth sores, no thrush, no jaundice, Respiratory - Lungs are clear to auscultation, Cardiovascular - Regular rate and rhythm of heart, Abdomen - Soft, bowel sounds present, Extremities - No visible edema or rash. Lab/Imaging: Most recent lab results are not available for this patient. Impression: History of prostrate cancer status post retropubic prostatectomy in 2005 at that time no adjuvant therapy was considered. Now with biochemical recurrence with elevated PSA level and normal bone scan and CT scan of abdomen pelvis PSA checked on 02/27/2018 was 20.7 and bone scan done on 11/24/2017 showed no evidence of bone metastases CT scan of abdomen pelvis done on 03/08/2018 showed no evidence of pelvic lymphadenopathy or local recurrence CT PET scan done on 03/19/2019 showed there is intense FDG uptake in the central portion of the prostate, including prosthetic urethra, posterior aspect of the urinary bladder to the right of the midline and in the anterior aspect of urinary bladder maximum SUV of urinary bladder focuses 6.32 posteriorly and 5.40 superior and prostrate bed 6.79 PSA checked on 03/26/2019 has gone up to 26.79 compared to 23.19 on 01/29/2019 and 18.10 on 05/31/2018 Started on neoadjuvant Casodex/Zoladex on 04/01/2019 and concurrent radiation therapy to the prostate bed added on 04/15/2019 and a follow-up PSA done on 04/30/2019 showed excellent response, it was 2.58 compared to 26.7 On 03/26/2019 Casodex was used to prevent tumor flare and was discontinued after one month on 04/30/2019 to minimize ADT related toxicity Plan: Discussed with patient regarding his labs PSA 0.055 compared to 0.061 previously Clinically, patient doing well with no new signs symptom suggestive of recurrence of disease his follow-up PSA continue to improve, tolerating 3 monthly Zoladex well but with expected side effect e.g. off and on hot flashes. We will proceed with next 3 monthly Zoladex today, then return to clinic in 3 months, patient has completed 2 years of 'adjuvant' Zoladex with this injection, as patient has recurrence of disease, being high risk he was recommended to continue for total 36-month but patient is double minded so he will think about, he will return to clinic in 3 months with PSA if at that time, patient decided to continue with Zoladex for total 36-month or as long as tolerated, will continue with this plan on the other hand patient decided not to consider further therapy then we will monitor him Signed By: Louis Castillo M.D. <<Signature on File>>
== END 2021-04-14 13:50 | disposition home or self-care (01) ==
LOC: ONCMED 13:51
PROVIDERS: PCP Family Medicine; Visit Provider Internal Medicine Hematology & Oncology
DX: C61 Malignant neoplasm of prostate (principal); R97.21 Rising PSA following treatment for malignant neoplasm of prostate; Z79.811 Long term (current) use of aromatase inhibitors; Z79.899 Other long term (current) drug therapy
CPT/HCPCS: 36415; 84153; 96372; 96402; 99215; J9202

== ENCOUNTER → 2021-07-07 09:46 | Outpatient (BNVA) | payer MEDICARE, SELFPAY | PROVIDERS: PCP Family Medicine; Visit Provider Nurse Practitioner Family | DX: N39.41 Urge incontinence (principal); C61 Malignant neoplasm of prostate | CPT/HCPCS: 81003 ==

== ENCOUNTER 2021-07-28 13:45 | Outpatient (CLI) | payer MEDICARE, SELFPAY ==
[2021-07-28 15:22] LABS: Prostate Specific Antigen 0.031 ng/mL (0-4)
--- NOTE | 2021-07-29 08:36 | ONC FU_ITS ---
Dr. Castillo follow up note Patient: Toney Rodriguez Unit #: [id number]: 1940 Dicatated By: Louis Castillo M.D.Date of Visit:Jul 28, 2021 Onc Med Follow-up/Prog Note History of Present Illness: Mr. Rodriguez is a 80-year-old gentleman with history of prostate cancer initially diagnosed in 2004. At that time, he underwent retropubic prostatectomy and no further treatment was considered. He had observation alone and he did well until March 2017. He developed abdominal pain and was diagnosed with acute appendicitis for which he underwent appendicectomy. His preop labs included a PSA and it showed his PSA was 3 compared to 1 earlier. He was referred to Dr. Markham and he was observed in urology clinic with serial PSA levels and LUDY on a regular basis. In June 2017, his PSA was 7.4 and on 09/29/2017 his PSA was 10.2. Repeat PSA on 10/05/2017 was 13.3 and on 02/27/2018 his PSA gone up to 20.7 with [address]Y. A CT scan of abdomen pelvis was ordered and reported no pelvic lymphadenopathy, no osteoblastic or osteolytic bone disease. On 11/24/2017 he had a bone scan done which reported no evidence of bone metastases. Elevated PSA but stable and he continued with active surveillance. Follow-up bone scan done on 01/29/2019 reported no evidence of bone metastases and CT scan of abdomen pelvis done on 01/29/2019 reported status Post prostatectomy, no evidence of pelvic or retroperitoneal lymphadenopathy. CT PET scan done on 03/19/2019 showed prostate bed recurrence and urinary bladder involvement and PSA checked done 03/26/2019 is 26.79 Started on ADT with Casodex/Zoladex on 04/01/2019 concurrent radiation therapy to the prostate bed was added on 04/15/2019 and f/u PSA on 04/30/2019 was 2.58 compared to pretreatment PSA 26.7 On 03/26/2019 Came for follow-up, denies any specific complaint except persistent hot flashes, mood swings, generalized weakness and fatigue but no fever chills, no new bony pains, no dysuria or hematuria, no weight loss, no headaches, tolerating Zoladex well otherwise Medications: Ascorbic Acid 1 Tablet (of 1000 mg) Oral daily, Aspirin 1 Tablet (of 325 mg) Tablet, enteric coated Oral daily, AZO Urinary Pain Relief 1 Tablet (of 95 mg) Tablet Oral daily PRN, Calcium + D3 1 Tablet (of 600-800 mg - Units) Oral daily, Cholecalciferol 1 Capsule (of 4000 Units) Oral daily, Lopid 1 Tablet (of 600 mg) Oral b.i.d., Men 50 plus multivitamin Tablet, Metoprolol Succinate ER 1 Tablet (of 50 mg) Tablet SR 24 HR Oral daily, Norvasc 1 Tablet (of 5 mg) Oral daily, Potassium Chloride Jodi ER 2 Tablet (of 20 meq) Tablet, controlled release Oral b.i.d., Probiotic oral 1 Tablet daily, Vitamin E 1 Capsule (of 400 Units) Oral daily, Zantac 1 Tablet (of 300 mg) Oral daily, Zocor 1 Tablet (of 20 mg) Oral at bedtime Allergies: chocolate Review of Systems: Review of Systems is not available for this patient. Vital Signs: Performed on Jul 28, 2021 16:20 Height - 68.00 in Weight - 185 lbs (LOW) BSA - 1.98 sq.m BMI - 28.13 Temperature - 97.7 F (LOW) Pulse - 62 /min Respiration - 16 /min BP - 160/82 mm(hg) (HIGH) O2 Sat - 97 % Pain - 0 Fatigue - 10 Performance Status: 0 - Fully active, able to carry on all predisease activities without restrictions. (ECOG) Physical Examination: ENMT - No mouth sores, no thrush, no jaundice, Respiratory - Lungs are clear to auscultation, Cardiovascular - Regular rate and rhythm of heart, Abdomen - Soft, bowel sounds present, Extremities - No visible edema. Lab/Imaging: Most recent lab results are not available for this patient. Impression: History of prostrate cancer status post retropubic prostatectomy in 2005 at that time no adjuvant therapy was considered. Now with biochemical recurrence with elevated PSA level and normal bone scan and CT scan of abdomen pelvis PSA checked on 02/27/2018 was 20.7 and bone scan done on 11/24/2017 showed no evidence of bone metastases CT scan of abdomen pelvis done on 03/08/2018 showed no evidence of pelvic lymphadenopathy or local recurrence CT PET scan done on 03/19/2019 showed there is intense FDG uptake in the central portion of the prostate, including prosthetic urethra, posterior aspect of the urinary bladder to the right of the midline and in the anterior aspect of urinary bladder maximum SUV of urinary bladder focuses 6.32 posteriorly and 5.40 superior and prostrate bed 6.79 PSA checked on 03/26/2019 has gone up to 26.79 compared to 23.19 on 01/29/2019 and 18.10 on 05/31/2018 Started on neoadjuvant Casodex/Zoladex on 04/01/2019 and concurrent radiation therapy to the prostate bed added on 04/15/2019 and a follow-up PSA done on 04/30/2019 showed excellent response, it was 2.58 compared to 26.7 On 03/26/2019 Casodex was used to prevent tumor flare and was discontinued after one month on 04/30/2019 to minimize ADT related toxicity Plan: Discussed with patient regarding his labs PSA is 0.031 compared to 0.055 previously Clinically, patient is doing well with no new signs symptom suggestive of disease progression, tolerating Zoladex reasonably well but with expected side effects e.g. off and on hot flashes, generalized weakness and fatigue, mood swings. Discussed with patient regarding management of ADT associated commonly observed side effects versus changing ADT to intermittent therapy versus discontinue and observation. Patient is not sure and wants to hold his scheduled dose of Zoladex today and return to clinic in 3 months with PSA, if symptoms improve and no change in PSA level he would prefer intermittent therapy with ADT or observation. So we will hold his schedule III monthly Zoladex today and then he will return to clinic in 3 months with PSA. Signed By: Louis Castillo M.D. <<Signature on File>>
== END 2021-07-28 13:46 | disposition home or self-care (01) ==
PROVIDERS: Visit Provider Internal Medicine Hematology & Oncology
DX: Z08 Encounter for follow-up examination after completed treatment for malignant neoplasm (principal); Z85.46 Personal history of malignant neoplasm of prostate; Z79.811 Long term (current) use of aromatase inhibitors; Z79.899 Other long term (current) drug therapy
CPT/HCPCS: 36415; 84153; 99214

== ENCOUNTER 2021-08-26 15:27 | Observation (INO) | payer MEDICARE, SELFPAY ==
[2021-08-26] VITALS (8 sets, daily range): BP systolic 146–172; BP diastolic 71–101; PULSE 60–88; RESP 16–18; TEMP 36.4–36.6; O2SAT 96–100; BMI 28.1
--- NOTE | 2021-08-26 | CT_ITS ---
WS: [id number] CT HEAD TECHNIQUE: Noncontrast CT of the head obtained from the skullbase to the vertex. CLINICAL INFORMATION: STROKE ALERT COMPARISON: None. DLP: [address] scans at [facility] use at least one of these dose optimization techniques: automated e xposure control; mA and/or kV adjustment per patient size (includes targeted exams where dose is matc hed to clinical indication); or iterative reconstruction. FINDINGS: No evidence of intracranial hemorrhage or mass effect. Ventricular system and basal cisterns are [place] nt. Moderate small vessel changes with moderate parenchymal volume loss. Tiny chronic appearing lacun ar infarct right caudate. No extra-axial fluid collections. No evidence of mass or mass effect. Mona l ugarte-white differentiation. Mild mucosal thickening ethmoid air cells and sphenoid sinus. CT/CT head wo con* [id number] IMPRESSION: 1. No evidence of intracranial hemorrhage or mass effect. 2. Moderate small vessel changes. Moderate parenchymal volume loss. 3. 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 4. No acute intracranial findings. Notified Margarita Middleton MD at 08/26/2021 3:40 PM.
--- NOTE | 2021-08-26 15:31 | CT_ITS ---
WS: [id number] CTA HEAD AND NECK TECHNIQUE: Contrast enhanced CTA of the head and neck with coronal and sagittal reformatted images an d maximum intensity projection (MIP) images. NASCET criteria utilized. CLINICAL INFORMATION: STROKE ALERT COMPARISON: None. DLP: 2266.[address] scans at [facility] use at least one of these dose optimization techniques: automated e xposure control; mA and/or kV adjustment per patient size (includes targeted exams where dose is matc hed to clinical indication); or iterative reconstruction. FINDINGS: RIGHT: Right common carotid artery is patent. Moderate calcified atheromatous plaque right carotid bu lb extending into the ICA with less than 50% stenosis. Right ICA is patent to the skull base. LEFT: Left common carotid artery is patent. Mild calcified atheromatous plaque left carotid bulb exte nding into the ICA without significant stenosis. Left ICA is patent to the skull base. INTRACRANIAL CTA: Both vertebral arteries are patent. Codominant vertebral arteries bilaterally. Basilar artery is mad[place] nt. Normal vascularity to the BREAKFAST HOSTESS territory bilaterally. Both ICAs are patent at the skull base. Moderate cavernous carotid calcification. Normal vascularity to the BARTOLOME and MCA territories bilaterally. Patent anterior communicating artery. No evidence of high -grade proximal stenosis or aneurysm. Moderate spondylitic changes cervical spine. Frontal sinuses and mastoid air cells are well aerated. Mild mucosal thickening in the ethmoid air cells and sphenoid sinus. Normal posterior nasopharynx. No rmal parapharyngeal fat. IMPRESSION: 1. No significant ICA stenosis bilaterally. Both ICAs are patent to the skull base. 2. Unremarkable intracranial CTA. No evidence of flow-limiting stenosis or aneurysm. 3. Codominant and patent vertebral arteries bilaterally. 4. No other acute findings. Notified Margarita Middleton MD at 08/26/2021 3:51 PM.
[2021-08-26] MEDS: iodixanol 320 mg/mL 100mL Btl IV (15:37)
--- NOTE | 2021-08-26 15:51 | ECG_ITS ---
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 Measurements Intervals [place] Rate: 60 P: 34 LA: 168 QRS: -31 QRSD: 92 T: 29 QT: 411 QTc: 413 Interpretive Statements SINUS RHYTHM LEFT AXIS DEVIATION [QRS AXIS < -30] MODERATE VOLTAGE CRITERIA FOR LVH, CONSIDER NORMAL VARIANT [MEETS CRITERIA IN ONE OF: R(aVL), S(V1), R(V5), R(V5/V6)+S(V1)] No previous ECG available for comparison Electronically Signed On 08-26-2021 17:08:47 CDT by Seven Flores M.D. [id number]
--- NOTE | 2021-08-26 16:12 | ED_ITS ---
HPI - General Adult General: Chief complaint: Neuro Symptoms/Deficit Stated complaint: POSSIBLE STROKE Time Seen by Provider: 08/26/21 15:31 History of Present Illness: HPI narrative: Patient is a 80-year-old male with history of hypertension presenting to the emergency room with complaints of sudden onset left-sided deficit, word finding difficulty and double vision since 2 PM. Patient says the double vision or finding difficulty resolved. Patient says that the weakness is still mild present on the left side. Stroke alert was called by the time patient arrived. Patient denies any other slurring of speech, facial droop, paralysis, or other focal findings. Patient denies any hemianopsia.NIHSS score of 2 on arrival. Onset:1400 Duration:1 hr and 20 minutes Location:home Severity:severe Review of Systems Narrative: Constitutional: No fever, no chills. HEENT: No vision changes CV: No chest pain, no palpitations PULM: no cough, no dyspnea. GI: No abdominal pain, no N/V/D. : No dysuria MSKEL: No muscle pain SKIN: No new rashes, no lesions. NEURO: No headache, no focal weakness. +transient word finding difficulty, double vision, and L sided weakness HEME: No visible bruises PSYCH: Normal mood PFSH ED PFSH: Medical History Bladder neck contracture Fracture of wrist REPAIRED History of nonmelanoma skin cancer Hypertension Prostate cancer Urgency incontinence Surgical History History of appendectomy History of prostatectomy S/P repair of hydrocele Family History Father , AT AGE 87 RENAL FAILURE,DIABETES Chronic kidney disease (CKD) Diabetes Mother , AT AGE 80 HEART ATTACK CAD (coronary artery disease) Social History Smoking and tobacco status: never smoked Alcohol intake: current Alcohol intake frequency: holidays/special occasions only Adopted: No Caregiver/support person: No Lives independently: No Household members: spouse Marital status: Current occupational status: retired History of recent travel: No Physical Exam Narrative: EXAM NARRATIVE: Head: Atraumatic Eyes: PERRL, conjunctiva without injection ENT: Mucous membrane moist NECK: Supple, ROM intact LUNGS: LCTAB, no crackles/rhonchi CV: RRR ABDOMEN: Soft, nontender in all quadrants EXTREMITY: Normal ROM SKIN: No rash or erythema NEURO: A&O x 3. Sensation intact. Motor strength 5/5 all extremeties. Mgjwjs-td-gloq intact. No pronator drift. Normal gait w/o ataxia. No nystagmus noted. CN 2-12 intact as follows: CN2: VIsion intact, pupils equal, bilaterally reactive to light CN3: EOMI CN4: Down and lateral EOMI CN5: V1,V2,V3 w/ sensation intact to LT CN6: Lateral eye movements intact CN7: Symetric smile CN8: Pt hears finger rubbing equally b/l CN9/10: Pt elevates posterior palate equally. No uvular deviation CN11: Shoulder shrug w/ 5/5 strength b/l CN12: Tongue protrudes equally and mobile bidrectionally ======= Mental status? Awake, alert, and oriented to self, year, month, location, and situation.? Following simple axial and appendicular commands.? Has appropriate fund of knowledge, comprehension, and insight.? Able to recall and understands pertinent aspects of medical history and current treatment status.? ? Language? Speech is fluent without word-finding difficulties.? Intact naming, expression, used car manager, and repetition.? ? Cranial nerves? 2,3,4,6: PERRL, EOMI with no nystagmus. 5: Intact sensation to light touch, symmetric? 7: Smile symmetrical, no facial droop.? 8: Hearing grossly intact.? 9,10: Normal palate movement.? 11: Normal strength in trapezius bilaterally 12: Tongue protrudes midline.? ? Motor examination? Normal bulk & tone. Strength as follows (R/L): Delts (5/4), Biceps (5/4), Triceps (5/4), Wrist ext (5/4), hip flexors (5/4), plantarflexors (5/4), dorsiflexors (5/4). ? Sensation? Light Touch: Grossly intact and equal in upper and lower extremities bilaterally? Romberg: Negative.? Distal joint position sense intact ? Coordination? Iydkrx-xv-enhm-finger movements intact without dysmetria or past-pointing.? Rapid fingertaps: preserved amplitude without decriment.? No tremor, myoclonus or truncal ataxia.? ? Gait/stance? Steady, normal narrow base gait with appropriate arm swing and turning.? Tandem gait without hesitation or loss of balance. PSYCH: Normal mood and affect Course Vital Signs: Vital signs: Vital Signs Temperature 97.6 F 08/26/21 15:29 Pulse Rate 83 08/26/21 15:29 Respiratory Rate 18 08/26/21 15:29 Blood Pressure 170/101 08/26/21 15:29 Pulse Oximetry 100 08/26/21 15:29 MDM - General Adult MDM Narrative: Medical decision making narrative: 80-year-old male with history of hypertension presenting to the emergency room with complaints of left-sided weakness, worsening difficulty can double vision started at 2 PM while sitting down watching TV. Since then, the double vision and word finding difficulty has resolved. On exam, patient has 4 out of 5 strength on left side. Patient has an NIH stroke scale of 2 which indicates that he is not a candidate for TPA. Case was discussed with Dr. Amaral who agrees with plan for serial observation and stroke work-up at this time. Disposition: Admission Lab Data: Labs: Lab Results 08/26/21 08/26/21 08/26/21 16:09 16:09 16:09 WBC 4.7 10^3/uL 10^3/ uL (4.0-10.0) RBC 3.82 10^6/uL L 10 ^6/uL (4.1-5.3) Hgb 12.0 g/dL g/dL (11.7-16.6) Hct 35.6 % L % (42.0-52.0) MCV 93.2 fl fl (80-94) MCH 31.4 pg pg (28.0-34.0) MCHC 33.7 g/dL g/dL (30.0-36.0) RDW 12.9 % % (12.1-15.1) Plt Count 221 10^3/cmm 10^3 /cmm (130-400) MPV 10.3 fL fL (7.4-10.4) Neut % (Auto) 63.8 % % Lymph % (Auto) 17.9 % % [place] % (Auto) 13.2 % % Eos % (Auto) 4.5 % % Baso % (Auto) 0.4 % % Neut # (Auto) 2.99 10^3/uL 10^3 /uL (1.8-7.7) Lymph # (Auto) 0.8 10^3/uL 10^3/ uL (0.8-4.8) [place] # (Auto) 0.6 10^3/uL 10^3/ uL (0.2-0.9) Eos # (Auto) 0.2 10^3/uL 10^3/ uL (0.0-0.8) Baso # (Auto) 0.0 10^3/uL 10^3/ uL (0.0-0.1) Nucleated RBC % (a uto) 0 % % Nucleated RBCs # 0.0 /100WBC /100W BC PT 12.90 SECONDS SEC ONDS (12.1-14.9) INR 0.94 (0.8-1.2) APTT 25.4 SECONDS SECO NDS (23.9-36.7) Sodium 139 mmol/L mmol/L (136-145) Potassium 3.7 mmol/L mmol/L (3.5-5.1) Chloride 104 mmol/L mmol/L (98-107) Carbon Dioxide 24 mmol/L mmol/L (22-29) Anion Gap 14.7 (5-19) BUN 34 mg/dL H mg/dL (8-23) Creatinine 1.3 mg/dL H mg/dL (0.7-1.2) GFR Calculation Not Reportable Glucose 126 mg/dL H mg/dL (65-115) Calculated Osmolal ity 297 mOsm/kg H mOs m/kg (285-295) Calcium 9.2 mg/dL mg/dL (8.5-10.5) Total Bilirubin 0.2 mg/dL mg/dL (0.15-1.2) AST 14 U/L U/L (0-40) ALT 15 U/L U/L (0-41) Alkaline Phosphata se 60 IU/L IU/L (40-130) Total Protein 6.8 g/dL g/dL (6.6-8.7) Albumin 4.2 g/dL g/dL (3.5-5.2) Globulin 2.6 g/dL g/dL (1.3-4.6) Urine Color Urine Appearance Urine pH Ur Specific Gravit y Urine Protein Urine Glucose (UA) Urine Ketones Urine Blood Urine Nitrate Urine Bilirubin Urine Urobilinogen Ur Leukocyte Shawna ase Urine Opiates Scre en Ur Barbiturates Sc reen Ur Phencyclidine S crn Ur Amphetamines Sc reen U Benzodiazepines Scrn Urine Cocaine Scre en U Marijuana (THC) Screen 08/26/21 08/26/21 16:13 16:13 WBC RBC Hgb Hct MCV MCH MCHC RDW Plt Count MPV Neut % (Auto) Lymph % (Auto) [place] % (Auto) Eos % (Auto) Baso % (Auto) Neut # (Auto) Lymph # (Auto) [place] # (Auto) Eos # (Auto) Baso # (Auto) Nucleated RBC % (a uto) Nucleated RBCs # PT INR APTT Sodium Potassium Chloride Carbon Dioxide Anion Gap BUN Creatinine GFR Calculation Glucose Calculated Osmolal ity Calcium Total Bilirubin AST ALT Alkaline Phosphata se Total Protein Albumin Globulin Urine Color Straw (Yellow) Urine Appearance Clear (CLEAR) Urine pH 5 (5-7) Ur Specific Gravit y 1.020 (1.005-1.030) Urine Protein Neg (Negative) Urine Glucose (UA) Norm (Normal) Urine Ketones Negative (Negative) Urine Blood Neg (Negative) Urine Nitrate Negative (Negative) Urine Bilirubin Neg (Negative) Urine Urobilinogen Norm mg/dL mg/dL (Negative) Ur Leukocyte Shawna ase Negative (Negative) Urine Opiates Scre en Negative ng/mL ng /mL (Negative) Ur Barbiturates Sc reen Negative ng/mL ng /mL (Negative) Ur Phencyclidine S crn Negative ng/mL ng /mL (Negative) Ur Amphetamines Sc reen Negative ng/mL ng /mL (Negative) U Benzodiazepines Scrn Negative ng/mL ng /mL (Negative) Urine Cocaine Scre en Negative ng/mL ng /mL (Negative) U Marijuana (THC) Screen Negative ng/mL ng /mL (Negative) Imaging Data^: Other Imaging: Radiologist's impression: [address] [id number] Scan ReportSigned Patient: Toney Rodriguez Ozzy #: [id number]: 1Acct#:[id number]/Sex: 80 / MADM Date: 08/26/21Loc: ERRoom/Bed:Attending Dr: Ordering Provider/Ordering MD: Margarita Middleton MD Date of Service: 08/26/21 Procedure(s): CT angio headcelesteck* [id number] Accession Number(s): [id number] Report Number: [id number] WS: [id number] CTA HEAD AND NECK TECHNIQUE: Contrast enhanced CTA of the head and neck with coronal and sagittal reformatted images and maximum intensity projection (MIP) images. NASCET criteria utilized. CLINICAL INFORMATION: STROKE ALERT COMPARISON: None. DLP: 2266.[address] scans at [facility] use at least one of these dose optimization techniques: automated exposure control; mA and/or kV adjustment per patient size (includes targeted exams where dose is matched to clinical indication); or iterative reconstruction. FINDINGS: RIGHT: Right common carotid artery is patent. Moderate calcified atheromatous plaque right carotid bulb extending into the ICA with less than 50% stenosis. Right ICA is patent to the skull base. LEFT: Left common carotid artery is patent. Mild calcified atheromatous plaque left carotid bulb extending into the ICA without significant stenosis. Left ICA is patent to the skull base. INTRACRANIAL CTA: Both vertebral arteries are patent. Codominant vertebral arteries bilaterally. Basilar artery is patent. Normal vascularity to the PIPE COVERER HELPER territory bilaterally. Both ICAs are patent at the skull base. Moderate cavernous carotid calcification. Normal vascularity to the BARTOLOME and MCA territories bilaterally. Patent anterior communicating artery. No evidence of high-grade proximal stenosis or aneurysm. Moderate spondylitic changes cervical spine. Frontal sinuses and mastoid air cells are well aerated. Mild mucosal thickening in the ethmoid air cells and sphenoid sinus. Normal posterior nasopharynx. Normal parapharyngeal fat. IMPRESSION: 1. No significant ICA stenosis bilaterally. Both ICAs are patent to the skull base. 2. Unremarkable intracranial CTA. No evidence of flow-limiting stenosis or aneurysm. 3. Codominant and patent vertebral arteries bilaterally. 4. No other acute findings. Notified Margarita Middleton MD at 08/26/2021 3:51 PM. Dictated By:Vinny Chiu MDSigned By:Vinny Chiu MDSigned Date/Time:08/26/21 1552DD/ 1541 [facility], [place] [address]OV Scan ReportSigned Patient: Toney Rodriguez #: [id number]: [birth year]Acct#:[id number]/Sex: 80 / MADM Date: 08/26/21Loc: ERRoom/Bed:Attending Dr: Ordering Provider/Ordering MD: Margarita Middleton MD Date of Service: 08/26/21 Procedure(s): CT head wo con* [id number] Accession Number(s): [id number] Report Number: [id number] WS: [id number] CT HEAD TECHNIQUE: Noncontrast CT of the head obtained from the skullbase to the vertex. CLINICAL INFORMATION: STROKE ALERT COMPARISON: None. DLP: [address] scans at [facility] use at least one of these dose optimization techniques: automated exposure control; mA and/or kV adjustment per patient size (includes targeted exams where dose is matched to clinical indication); or iterative reconstruction. FINDINGS: No evidence of intracranial hemorrhage or mass effect. Ventricular system and basal cisterns are patent. Moderate small vessel changes with moderate parenchymal volume loss. 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 No extra-axial fluid collections. No evidence of mass or mass effect. Normal ugarte-white differentiation. Mild mucosal thickening ethmoid air cells and sphenoid sinus. CT/CT head wo con* [id number] IMPRESSION: 1. No evidence of intracranial hemorrhage or mass effect. 2. Moderate small vessel changes. Moderate parenchymal volume loss. 3. 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 4. No acute intracranial findings. Notified Margarita Middleton MD at 08/26/2021 3:40 PM. Dictated By:Vinny Chiu MDSigned By:Vinny Chiu MDSigned Date/Time:08/26/21 1541DD/ 1535 Discharge Plan Discharge Prescriptions: No Action losartan 100 mg tablet 100 mg PO DAILY RF: 0 simvastatin 20 mg tablet 20 mg PO DAILY RF: 0 bicalutamide 50 mg tablet 50 mg PO DAILY RF: 0 Zoladex 10.8 mg implant 10.8 mg SUBCUT DAILY RF: 0 amlodipine [Norvasc] 10 mg tablet 10 mg PO DAILY RF: 0 coenzyme [id number] E 100-100 mg-unit capsule 1 cap PO DAILY RF: 0 Adult 50 Plus Probiotic 4 billion cell capsule 4,000 mmu cells PO DAILY RF: 0 cholecalciferol (vitamin D3) 25 mcg (1,000 unit) tablet 25 mcg PO DAILY RF: 0 ascorbic acid (vitamin C) 1,000 mg tablet 1 gm PO DAILY RF: 0 vitamin E (dl, acetate) 400 unit capsule 400 unit PO ONCE RF: 0 potassium chloride 20 mEq tablet extended release 20 meq PO DAILY RF: 0 gemfibrozil 600 mg tablet 600 mg PO BID RF: 0 Complete Multivitamin Tablet 1 tab PO QAM RF: 0 oxybutynin chloride 5 mg tablet 5 mg PO BID Qty: 180 RF: 3 Coding Level of Care Code ED Regulatory Law Specialist for Diego Saldana
[2021-08-26 16:22] LABS: Basophils % 0.4 %; Eosinophils # 0.2 10^3/uL (0.0-0.8); Eosinophils % 4.5 %; Hematocrit 35.6 % (42.0-52.0); Lymphocytes # 0.8 10^3/uL (0.8-4.8); Lymphocytes % 17.9 %; Mean Corpuscular HGB Conc 33.7 g/dL (30.0-36.0); Mean Corpuscular Hemoglobin 31.4 pg (28.0-34.0); Mean Corpuscular Volume 93.2 fl (80-94); Mean Platelet Volume 10.3 fL (7.4-10.4); Monocytes # 0.6 10^3/uL (0.2-0.9); Monocytes % 13.2 %; Neutrophils # 2.99 10^3/uL (1.8-7.7); Neutrophils % 63.8 %; Nucleated Red Blood Cells % 0 %; Platelet Count 221 10^3/cmm (130-400); Red Blood Count 3.82 10^6/uL (4.1-5.3); Red Cell Distribution Width 12.9 % (12.1-15.1); White Blood Count 4.7 10^3/uL (4.0-10.0)
[2021-08-26 16:29] LABS: Add Urine Microscopic? NO; Charge for UA Resulting for Rev
[2021-08-26 16:33] LABS: Bilirubin Urine Neg (Negative); Blood Urine Neg (Negative); Glucose Urine UA Norm (Normal); Ketones Urine Negative (Negative); Leukocyte Esterase Urine Negative (Negative); Nitrate Urine Negative (Negative); Protein Urine Neg (Negative); Urine Appearance Clear (CLEAR); Urine Color Straw (Yellow); Urobilinogen Urine Norm (Negative); pH Urine 5 (5-7)
[2021-08-26 16:41] LABS: Alanine Aminotransferase 15 U/L (0-41); Albumin Level 4.2 g/dL (3.5-5.2); Alkaline Phosphatase 60 IU/L (40-130); Anion Gap 14.7 (5-19); Aspartate Amino Transferase 14 U/L (0-40); Blood Urea Nitrogen 34 mg/dL (8-23); Calcium 9.2 mg/dL (8.5-10.5); Carbon Dioxide 24 mmol/L (22-29); Chloride 104 mmol/L (98-107); Globulin 2.6 g/dL (1.3-4.6); Glucose 126 mg/dL (65-115); Osmolality Calculated 297 mOsm/kg (285-295); Potassium 3.7 mmol/L (3.5-5.1); Sodium 139 mmol/L (136-145); Total Bilirubin 0.2 mg/dL (0.15-1.2); Total Protein 6.8 g/dL (6.6-8.7)
[2021-08-26 16:42] LABS: Amphetamines Screen Urine Negative (Negative); Barbiturates Screen Urine Negative (Negative); Benzodiazepines Screen Urine Negative (Negative); Cocaine Screen Urine Negative (Negative); Opiate Screen Urine Negative (Negative); PCP Screen Urine Negative (Negative); THC Screen Urine Negative (Negative)
[2021-08-26 16:53] LABS: INR 0.94 (0.8-1.2)
[2021-08-26 16:54] LABS: Partial Thromboplastin Time 25.4 SECONDS (23.9-36.7)
--- NOTE | 2021-08-26 17:35 | PM.HP ---
Providers/Chief Complaint Primary Care Provider: YEHUDA Lion Chief Complaint: POSSIBLE STROKE History of Present Illness 80-year-old with past medical history of prostate cancer s/p retropubic prostatectomy,post op dvt, GI bleed on coumadin, hypertension, dyslipidemia and chronic stage 3 kidney disease (baseline around 1.7) who presented to ER with left sided weakness. Initial symptoms were noted around 2 pm during which time patient was also noted to have diplopia as well as expressive aphasia. Symptoms gradually improved. No reported history of prior strokes. No fever, chills, nausea or vomiting. NIH of 2 was noted on arrival. Laboratory work up showed a WBC of 4.7, hemoglobin of 12.0, hematocrit of 35.6 and a platelet count of 221. INR of 0.94. Sodium of 139, potassium of 3.7, chloride of 104, bicarb of 24, BUN of 34, and a creatinine of 1.3. UA and urinary drug screen is negative. Head CT did not show any evidence of intracranial hemorrhage or mass effect. CTA head and neck did not show any evidence of any acute aneurysm or stenosis. Admitted for further work up. Review of Systems General: Reports: 10 or more systems reviewed and unremarkable except in HPI and below Medications/Allergies Home Medications Medication Instructions Recorded Confirmed Last Taken Type amlodipine 10 mg tablet 10 mg PO DAILY tab 11/01/19 08/02/21 Unknown History ascorbic acid (vitamin C) 1,000 mg 1 gm PO DAILY tab 11/01/19 08/02/21 Unknown History tablet bicalutamide 50 mg tablet 50 mg PO DAILY tab 11/01/19 08/02/21 Unknown History cholecalciferol (vitamin D3) 25 25 mcg PO DAILY tab 11/01/19 08/02/21 Unknown History mcg (1,000 unit) tablet coenzyme [id number] E 100 mg-100 1 cap PO DAILY cap 11/01/19 08/02/21 Unknown History unit capsule gemfibrozil 600 mg tablet 600 mg PO BID 11/01/19 08/02/21 Unknown History goserelin 10.8 mg subcutaneous 10.8 mg SUBCUT DAILY each 11/01/19 08/02/21 Unknown History implant lactobacillus combination no.9 4 4,000 mmu cells PO DAILY cap 11/01/19 08/02/21 Unknown History billion cell capsule losartan 100 mg tablet 100 mg PO DAILY tab 11/01/19 08/02/21 Unknown History multivitamin,wo-qfsq-nhhsvdlg 1 tab PO QAM 11/01/19 08/02/21 Unknown History potassium chloride 20 mEq 20 meq PO DAILY tab 11/01/19 08/02/21 Unknown History tablet,extended release simvastatin 20 mg tablet 20 mg PO DAILY tab 11/01/19 08/02/21 Unknown History vitamin E (dl, acetate) 180 mg 400 unit PO ONCE 11/01/19 08/02/21 Unknown History (400 unit) capsule oxybutynin chloride 5 mg tablet 5 mg PO BID #180 tab 07/07/21 08/02/21 Unknown Rx Allergies Allergy/AdvReac Type Severity Reaction Status Date / Time chocolate flavor Allergy Unknown Unknown Verified 07/19/21 08:09 PFSH Acute PFSH: Medical History Bladder neck contracture Fracture of wrist REPAIRED History of nonmelanoma skin cancer Hypertension Prostate cancer Urgency incontinence Surgical History History of appendectomy History of prostatectomy S/P repair of hydrocele Family History Father , AT AGE 87 RENAL FAILURE,DIABETES Chronic kidney disease (CKD) Diabetes Mother , AT AGE 80 HEART ATTACK CAD (coronary artery disease) Social History Smoking and tobacco status: never smoked Alcohol intake: current Alcohol intake frequency: holidays/special occasions only Adopted: No Caregiver/support person: No Lives independently: No Household members: spouse Marital status: Current occupational status: retired History of recent travel: No Vitals/I&O/Wt Last Vital Signs Temp 97.6 F 08/26/21 15:29 Pulse 83 08/26/21 15:29 Resp 18 08/26/21 15:29 BP 170/101 08/26/21 15:29 Pulse Ox 100 08/26/21 15:29 Weight last 48 hrs Weight 83.915 kg Physical Exam Narrative: EXAM NARRATIVE: EXAM NARRATIVE: General : alert, awake and oriented x 3 HEENT: Grossly unremarkable CVS; NSR Chest; Non labored respiration Abd: Soft Ext No edema Data : 08/26/21 16:09 08/26/21 16:09 A&P Assessment and plan (1) CVA (cerebral vascular accident): Acute CVA (cerebrovascular accident): NIH of [address] neg CTA - Head and neck - negative. MRI in am Asa 81 mg po daily Statin Neurochecks Npo until speech eval Lipid panel and a1c in am Allow permissive HTN - tx BP if SBP > 220 or DBP > 120 Hold antihypertensives Status: Acute Attestations Medical Necessity Statement*: Anticipate less than 2 midnight stay in hospital for cva work up Time Spent in Patient Care: Greater than 35 minutes Coding Level of Care Code Acute Director Emergency for g Fwd Diagnoses CVA (cerebral vascular accident) I63.9
[2021-08-26] MEDS: atorvastatin 40 mg Tablet 20 MG PO (20:43)
[2021-08-27] VITALS (9 sets, daily range): BP systolic 163–181; BP diastolic 70–97; PULSE 61–69; RESP 17–18; TEMP 35.9–36.8; O2SAT 94–96
--- NOTE | 2021-08-27 06:00 | USCV_ITS ---
Toney Rodriguez Age: 80 Gender: M : 1940 Exam Date: 08/27/2021 06:29 Ordering Phys: Naman Ospina MD Technologist: Jeffry Cifuentes [place]am [place] [facility] [place]: TIA BP: 134 / 76 HR: 66 Rhythm: Sinus Technical Quality: Adequate MEASUREMENTS (Male / Female) Normal Values 2D ECHO LV Diastolic Diameter PLAX 4.1 cm 4.2 - 5.9 / 3.9 - 5.3 cm LV Systolic Diameter PLAX 3.0 cm IVS Diastolic Thickness 0.9 cm 0.6 - 1.0 / 0.6 - 0.9 cm IVS Systolic Thickness 1.2 cm LVPW Diastolic Thickness 1.1 cm 0.6 - 1.0 / 0.6 - 0.9 cm LVPW Systolic Thickness 1.4 cm LVOT Diameter 2.0 cm LV Ejection Fraction 2D Teich 52.6 % LV Ejection Fraction MOD 2C 53.4 % LV Ejection Fraction 2C AL 56.6 % LA Diameter 3.6 cm LA Width 3.6 cm LA Height 5.9 cm RA Width 3.9 cm RA Height 4.7 cm DOPPLER AV Peak Velocity 175.0 cm/s LVOT Peak Velocity 119.0 cm/s AV Area Cont Eq vti 2.7 cm squared AV Area Cont Eq pk 2.2 cm squared MV Area PHT 5.0 cm squared Mitral E to A Ratio 0.9 MV E' Velocity 57.5 cm/s Mitral E to MV E' Ratio 13.3 Mitral E to LV E' Lateral Ratio 10.9 Mitral E to LV E' Septal Ratio 17.3 TR Peak Velocity 282.0 cm/s TR Peak Gradient 31.8 mmHg TV Peak E Velocity 85.0 cm/s Right Atrial Pressure 3.0 mmHg Pulmonary Artery Systolic Pressu 34.8 mmHg FINDINGS Left Ventricle Normal left ventricular size. LV systolic function is normal with EF of 55-60%.No regional wall motion abnormalities. Grade 1 diastolic dysfunction Right Ventricle The right ventricle is normal in size and function. Right Atrium The right atrium is normal in size. Left Atrium The left atrium is normal in size. Mitral Valve Mild mitral annular calcification without significant stenosis or prolapse. There is no mitral regurgitation. Aortic Valve Structurally normal aortic valve without significant sclerosis or stenosis. There is no aortic regurgitation. Tricuspid Valve Structurally normal tricuspid valve without significant stenosis. Mild tricuspid regurgitation. Insufficient TR jet to calculate RVSP Pulmonic Valve Grossly normal Pericardium Normal pericardium without effusion. Aorta Normal ascending aorta dimension. CONCLUSIONS LV systolic function is normal with EF of 55 to 60%. Grade 1 diastolic dysfunction. Mild mitral annular calcification seen. No comparison studies are available. Seven Flores MD (Electronically Signed) Final Date: 28 August 2021 18:53 Amended: 28 August 2021 18:55 C
[2021-08-27 06:05] LABS: Chol HDL Ratio 3.15 mg/dL (1.0-5.00); Cholesterol 104 mg/dL (0-200); HDL Cholesterol 33 mg/dL (60-100); LDL Cholesterol Calculated 44 mg/dL (50-129); LDL HDL Ratio 1.33 RATIO (0.00-3.22); Triglycerides 135 mg/dL (0-150)
[2021-08-27 06:13] LABS: Estmated Average Glucose 105; Hemoglobin A1C 5.3 % (4.0-6.0)
[2021-08-27] MEDS: aspirin 81 mg EC Tablet PO (09:24)
--- NOTE | 2021-08-27 09:36 | PC.CHAP ---
Pastoral Care Encounter/Spiritual Assessment Type of Contact [] Declined ripsaw operator visit [] Patient/Family/Request visit [] Outpatient visit [] Follow-up visit [] Physician referral [] Code/Alert [x] Routine visit [] Staff referral [] Actively dying [] Patient sleeping [] Family support [] [] Out of room [] Palliative care [] [] Receiving care in room [] Pre-surgical visit [] Trauma [] Long length of stay [] ICU visit [] Other: Relational/Emotional Strength [x] Patient feels connected with others/family/visitors/staff [] Distress [] Loneliness/isolation [] Abandonment Spirituality of Patient [x] Person of Di [x] Attends Hoahaoism of their Di [x] Believes in Prayer [] Reads Bible or Hinduism materials [] There are Spiritual issues to be addressed Vaccine Key Customer Leader Interventions [x] Prayer [x] Active listening x[] Non-anxious presence [x] Spiritual/emotional support [] Crisis/trauma care [] Spiritual counseling [] Bereavement support [] Provided bereavement packet [] Provided Bible/devotional materials [] Provided toy/stuffed animal, coloring book to patient or family member [] Provided Communion [] Anointing/[place] [] Salvation x[] Completed spiritual assessment [] Other: Impact on Illness or Injury [] Angry [] Fearful [] Anxious [] Often cries [] Exhaustion [] Unable to work [] Unable to attend judaism [] Unable to walk/stand [] Unable to read [] Unable to drive [] Unable to eat/drink [] Unable to sleep [] Unable to be with family [] Patient intubated [] Other: Summary Time spent with patient 15 min
--- NOTE | 2021-08-27 10:42 | P.DS_ITS ---
Discharge Providers Date of Admission: 08/26/21 16:59 Date of Discharge: August 27, 2021 Attending Provider at Admission: Naman Ospina Attending Provider at Discharge: Jose E Holly MD Primary Care Provider: YEHUDA Lion Diagnoses at Discharge Discharge Diagnosis (1) CVA (cerebral vascular accident): Status: Resolved Reason for Visit Reason for Visit: POSSIBLE STROKE Hospital Course Hospital Course 80-year-old with past medical history of prostate cancer s/p retropubic prostatectomy,post op dvt, GI bleed on coumadin, hypertension, dyslipidemia and chronic stage 3 kidney disease (baseline around 1.7) who presented to ER with left sided weakness. Initial symptoms were noted around 2 pm during which time patient was also noted to have diplopia as well as expressive aphasia. Symptoms gradually improved. No reported history of prior strokes. No fever, chills, nausea or vomiting. NIH of 2 was noted on arrival. Laboratory work up showed a WBC of 4.7, hemoglobin of 12.0, hematocrit of 35.6 and a platelet count of 221. INR of 0.94. Sodium of 139, potassium of 3.7, chloride of 104, bicarb of 24, BUN of 34, and a creatinine of 1.3. UA and urinary drug screen is negative. Head CT did not show any evidence of intracranial hemorrhage or mass effect. CTA head and neck did not show any evidence of any acute aneurysm or stenosis. EKG: Normal sinus rhythm with left axis deviation, moderate LVH. Patient was admitted for management of: Acute CVA: He was started on aspirin ,Plavix, statin, other standard management for CVA was done (PT, SPL , permissive hypertension for first 24 to 48 hours, frequent neuro check) 2D echo was done: Which showed, normal LVEF, no gross valvular abnormalities, grade 1 diastolic dysfunction. CV carotid duplex BI:Bilateral ICA stenosis less than 50%. At the time of discharge patient had minimal left sided weakness, he was ambulating on his own, without any assistance, denied any, chest pain shortness of breath, had occasional palpitation, nausea vomiting dizziness, visual disturbances, difficulty with speech, dysphagia.Unfortunately he was not on telemetry monitoring during the hospital stay. He is being discharged on 2 weeks event monitor.Patient responded well to the above medical management, will continue to follow with his primary care physician as an outpatient. Physical Exam Const: COMMON NORMALS: patient oriented x3 HENMT: COMMON NORMALS: normocephalic and atraumatic HEAD & SCALP: normocephalic and atraumatic Resp: COMMON NORMALS: clear to auscultation bilaterally AUSCULTATION: clear to auscultation bilaterally Cardio: COMMON NORMALS: regular rate, regular rhythm, S1 normal heart sound present, S2 normal heart sound present, No gallops present (Cardio), No murmurs present (Cardio), No rub (Cardio) and Peripheral pulses 2+ throughout RATE: regular rate RHYTHM: regular rhythm HEART SOUNDS: S1 normal heart sound present and S2 normal heart sound present PERIPHERAL PULSES: Peripheral pulses 2+ throughout GI: COMMON NORMALS: Normal to inspection, nondistended, normoactive bowel sounds present, Soft to palpation, non-tender, No hepatosplenomegaly present and no masses AUSCULTATION: Yes normoactive bowel sounds PALPATION: Yes Soft to palpation and Yes No hepatosplenomegaly present RECTAL EXAM: Yes deferred Extremity: COMMON NORMALS: no clubbing, cyanosis or edema and no pedal edema Neuro: COMMON NORMALS: patient oriented x3 Discharge Data Data Completed and Pending: Completed Studies During Hospitalization Category Date Time Status CT angio headneck * [id number] Urge nt Cat Scan 08/26/21 15:[address] head wo con* [id number] Urgent Cat Scan 08/26/21 Completed CV carotid duplex BI* [id number] Stat Ultrasound 08/27/21 17:29 Completed Pending at discharge Category Date Time Status CV. echo complete * [id number] Routine Ultrasound 08/27/21 06:00 Taken Labs from last 24 hours 08/27/21 08/27/21 08/26/21 05:08 05:08 16:13 WBC RBC Hgb Hct MCV MCH MCHC RDW Plt Count MPV Neut % (Auto) Lymph % (Auto) [place] % (Auto) Eos % (Auto) Baso % (Auto) Neut # (Auto) Lymph # (Auto) [place] # (Auto) Eos # (Auto) Baso # (Auto) Nucleated RBC % (a uto) Nucleated RBCs # PT INR APTT Sodium Potassium Chloride Carbon Dioxide Anion Gap BUN Creatinine GFR Calculation Glucose Estimat Average Gl ucose 105 Hemoglobin A1c 5.3 Calculated Osmolal ity Calcium Total Bilirubin AST ALT Alkaline Phosphata se Total Protein Albumin Globulin Triglycerides 135 Cholesterol 104 LDL Cholesterol, C alc 44 L HDL Cholesterol 33 L LDL/HDL Ratio 1.33 Cholesterol/HDL Ra jean 3.15 Urine Color Urine Appearance Urine pH Ur Specific Gravit y Urine Protein Urine Glucose (UA) Urine Ketones Urine Blood Urine Nitrate Urine Bilirubin Urine Urobilinogen Ur Leukocyte Shawna ase Urine Opiates Scre en Negative Ur Barbiturates Sc reen Negative Ur Phencyclidine S crn Negative Ur Amphetamines Sc reen Negative U Benzodiazepines Scrn Negative Urine Cocaine Scre en Negative U Marijuana (THC) Screen Negative 08/26/21 08/26/21 08/26/21 16:13 16:09 16:09 WBC RBC Hgb Hct MCV MCH MCHC RDW Plt Count MPV Neut % (Auto) Lymph % (Auto) [place] % (Auto) Eos % (Auto) Baso % (Auto) Neut # (Auto) Lymph # (Auto) [place] # (Auto) Eos # (Auto) Baso # (Auto) Nucleated RBC % (a uto) Nucleated RBCs # PT 12.90 INR 0.94 APTT 25.4 Sodium 139 Potassium 3.7 Chloride 104 Carbon Dioxide 24 Anion Gap 14.7 BUN 34 H Creatinine 1.3 H GFR Calculation Not Reportable Glucose 126 H Estimat Average Gl ucose Hemoglobin A1c Calculated Osmolal ity 297 H Calcium 9.2 Total Bilirubin 0.2 AST 14 ALT 15 Alkaline Phosphata se 60 Total Protein 6.8 Albumin 4.2 Globulin 2.6 Triglycerides Cholesterol LDL Cholesterol, C alc HDL Cholesterol LDL/HDL Ratio Cholesterol/HDL Ra jean Urine Color Straw Urine Appearance Clear Urine pH 5 Ur Specific Gravit y 1.020 Urine Protein Neg Urine Glucose (UA) Norm Urine Ketones Negative Urine Blood Neg Urine Nitrate Negative Urine Bilirubin Neg Urine Urobilinogen Norm Ur Leukocyte Shawna ase Negative Urine Opiates Scre en Ur Barbiturates Sc reen Ur Phencyclidine S crn Ur Amphetamines Sc reen U Benzodiazepines Scrn Urine Cocaine Scre en U Marijuana (THC) Screen 08/26/21 16:09 WBC 4.7 RBC 3.82 L Hgb 12.0 Hct 35.6 L MCV 93.2 MCH 31.4 MCHC 33.7 RDW 12.9 Plt Count 221 MPV 10.3 Neut % (Auto) 63.8 Lymph % (Auto) 17.9 [place] % (Auto) 13.2 Eos % (Auto) 4.5 Baso % (Auto) 0.4 Neut # (Auto) 2.99 Lymph # (Auto) 0.8 [place] # (Auto) 0.6 Eos # (Auto) 0.2 Baso # (Auto) 0.0 Nucleated RBC % (a uto) 0 Nucleated RBCs # 0.0 PT INR APTT Sodium Potassium Chloride Carbon Dioxide Anion Gap BUN Creatinine GFR Calculation Glucose Estimat Average Gl ucose Hemoglobin A1c Calculated Osmolal ity Calcium Total Bilirubin AST ALT Alkaline Phosphata se Total Protein Albumin Globulin Triglycerides Cholesterol LDL Cholesterol, C alc HDL Cholesterol LDL/HDL Ratio Cholesterol/HDL Ra jean Urine Color Urine Appearance Urine pH Ur Specific Gravit y Urine Protein Urine Glucose (UA) Urine Ketones Urine Blood Urine Nitrate Urine Bilirubin Urine Urobilinogen Ur Leukocyte Shawna ase Urine Opiates Scre en Ur Barbiturates Sc reen Ur Phencyclidine S crn Ur Amphetamines Sc reen U Benzodiazepines Scrn Urine Cocaine Scre en U Marijuana (THC) Screen Vitals: Last Vital Signs Temp 98.1 F 08/27/21 07:30 Pulse 63 08/27/21 07:30 Resp 17 08/27/21 07:30 BP 163/73 08/27/21 07:30 Pulse Ox 96 08/27/21 07:30 Discharge Plan Discharge Patient Disposition: Home Condition: Stable Prescriptions: New Plavix 75 mg tablet 75 mg PO DAILY Qty: 30 RF: 3 aspirin 81 mg Tablet,Delayed Release (Dr/Ec) 81 mg PO DAILY 30 Days Qty: 30 RF: 3 Continued losartan 100 mg tablet 100 mg PO DAILY RF: 0 simvastatin 20 mg tablet 20 mg PO DAILY RF: 0 bicalutamide 50 mg tablet 50 mg PO DAILY RF: 0 Zoladex 10.8 mg implant 10.8 mg SUBCUT DAILY RF: 0 amlodipine [Norvasc] 10 mg tablet 10 mg PO DAILY RF: 0 coenzyme [id number] E 100-100 mg-unit capsule 1 cap PO DAILY RF: 0 Adult 50 Plus Probiotic 4 billion cell capsule 4,000 mmu cells PO DAILY RF: 0 cholecalciferol (vitamin D3) 25 mcg (1,000 unit) tablet 25 mcg PO DAILY RF: 0 ascorbic acid (vitamin C) 1,000 mg tablet 1 gm PO DAILY RF: 0 vitamin E (dl, acetate) 400 unit capsule 400 unit PO ONCE RF: 0 potassium chloride 20 mEq tablet extended release 20 meq PO BID RF: 0 gemfibrozil 600 mg tablet 600 mg PO BID RF: 0 Complete Multivitamin Tablet 1 tab PO QAM RF: 0 oxybutynin chloride 5 mg tablet 5 mg PO BID Qty: 180 RF: 3 Other Ambulatory Orders: [place] cardiac event monitor (Routine) Timeframe: 2 Weeks Facility: [facility] - Location: Cardiac Diagnostic Laboratory Ordered By: Jose E Holly Referrals: Carlee Olivas DO [Referring] - 2 weeks Discharge Diet: Regular Discharge Activity: Resume usual activity Patient Instructions: Opioid Safety Discharge Attestations Time Spent in Discharge Care*: less than 30 min Specific Discharge Activities: educating patient, educating and/or supporting family/caregiver, discussing with pcp/other providers, discussing with welfare case worker/social workers/dc planners, documenting/other paperwork and evaluating patient/reviewing data Status at Discharge: Cognitive status at discharge: cognitively intact , Behavioral status at discharge: cooperative , Functional status at discharge: independent ambulation Overall status at discharge: patient is progressing back to baseline Quality Metrics Clinical Quality Measures During this hospital stay, did patient experience: None Coding Level of Care Code Acute Chg FW DC note Diagnoses CVA (cerebral vascular accident) I63.9
--- NOTE | 2021-08-27 17:29 | USCV_ITS ---
Toney Rodriguez Age: 80 Gender: M : 1940 Exam Date: 08/27/2021 06:42 Ordering Phys: Naman Ospina MD Technologist: Jeffry Cifuentes Exam Location: [facility] – [place] Indication: TIA Risk Factors: Previous Vascular Surgery: Right Brachial BP: / Left Brachial BP: / Right Left Velocity (cm/s) Spectral Plaque Velocity (cm/s) Spectral Plaque Syst/Diast Broadening Syst/Diast Broadening 59.20/ 9.90 Prox CCA 90.20 / 15.60 44.00/ 13.10 Mid CCA 79.30 / 15.60 68.40/ 13.80 Hetro Distal CCA 81.50 / 17.10 Hetro 70.90/ 12.80 Hetro Prox ICA 79.50 / 24.80 Hetro 62.70/ 13.50 Mid ICA 76.00 / 15.40 65.20/ 14.80 Distal ICA 80.60 / 15.80 106.00 ECA 117.00 1.04 ICA/CCA 0.89 Antegrade Vertebral Antegrade 77.50/ 14.80 cm/s 51.10/ 7.90 cm/s Tri Subclavian Tri 7604. 63.30 00 FINDINGS Comparison: none available. No significant elevation of systolic or diastolic velocities. Waveforms are normal. Mixture of calcified and noncalcified plaque in the bifurcations. Antegrade vertebral arteries. CONCLUSIONS Bilateral ICA stenosis less than 50%. Mild bilateral carotid atherosclerosis. Dr. Elizabeth Guerra DO (Electronically Signed) Final Date: 27 August 2021 09:02 S
== END 2021-08-27 17:12 | disposition home or self-care (01) ==
LOC: ER 18:05 → MEDSURG 18:34
PROVIDERS: Admitting Provider Hospitalist; Emergency Provider Emergency Medicine; PCP Registered Nurse; Visit Provider Internal Medicine
DX: I63.9 Cerebral infarction, unspecified (principal); R29.702 NIHSS score 2; E78.2 Mixed hyperlipidemia; I12.9 Hypertensive chronic kidney disease with stage 1 through stage 4 chronic kidney disease, or unspecified chronic kidney disease; N18.30 Chronic kidney disease, stage 3 unspecified; Z79.01 Long term (current) use of anticoagulants; Z85.46 Personal history of malignant neoplasm of prostate
CPT/HCPCS: 36415; 70450; 70496; 70498; 80053; 80061; 80306; 81003; 83036; 85025; 85610; 85730; 92523; 92610; 93005; 93306; 93880; 97161; 97165; 97530; 99285; G0378; Q9967

== ENCOUNTER → 2021-10-12 06:49 | Outpatient (BNVA) | payer MEDICARE, SELFPAY | PROVIDERS: PCP Family Medicine; Visit Provider Urology | DX: N39.41 Urge incontinence (principal) | CPT/HCPCS: 81003 ==

== ENCOUNTER 2021-10-29 07:48 | Outpatient (CLI) | payer MEDICARE, SELFPAY ==
[2021-10-29 08:31] LABS: Basophils # 0.1 10^3/uL (0.0-0.1); Basophils % 1.1 %; Eosinophils # 0.2 10^3/uL (0.0-0.8); Eosinophils % 3.5 %; Hematocrit 40.2 % (42.0-52.0); Hemoglobin 13.7 g/dL (11.7-16.6); Lymphocytes # 0.7 10^3/uL (0.8-4.8); Lymphocytes % 16.1 %; Mean Corpuscular HGB Conc 34.1 g/dL (30.0-36.0); Mean Corpuscular Hemoglobin 31.5 pg (28.0-34.0); Mean Corpuscular Volume 92.4 fl (80-94); Monocytes # 0.7 10^3/uL (0.2-0.9); Monocytes % 14.3 %; Neutrophils # 2.98 10^3/uL (1.8-7.7); Neutrophils % 64.8 %; Nucleated Red Blood Cells % 0 %; Platelet Count 243 10^3/cmm (130-400); Red Blood Count 4.35 10^6/uL (4.1-5.3); Red Cell Distribution Width 12.4 % (12.1-15.1); White Blood Count 4.6 10^3/uL (4.0-10.0)
--- NOTE | 2021-10-29 10:19 | ONC FU_ITS ---
Dr. Castillo follow up note Patient: Toney Rodriguez Unit #: [id number]: 1940 Dicatated By: Louis Castillo M.D.Date of Visit:Oct 29, 2021 Onc Med Follow-up/Prog Note History of Present Illness: Mr. Rodriguez is a 81-year-old gentleman with history of prostate cancer initially diagnosed in 2004. At that time, he underwent retropubic prostatectomy and no further treatment was considered. He had observation alone and he did well until March 2017. He developed abdominal pain and was diagnosed with acute appendicitis for which he underwent appendicectomy. His preop labs included a PSA and it showed his PSA was 3 compared to 1 earlier. He was referred to Dr. Markham and he was observed in urology clinic with serial PSA levels and LUDY on a regular basis. In June 2017, his PSA was 7.4 and on 09/29/2017 his PSA was 10.2. Repeat PSA on 10/05/2017 was 13.3 and on 02/27/2018 his PSA gone up to 20.7 with [address]Y. A CT scan of abdomen pelvis was ordered and reported no pelvic lymphadenopathy, no osteoblastic or osteolytic bone disease. On 11/24/2017 he had a bone scan done which reported no evidence of bone metastases. Elevated PSA but stable and he continued with active surveillance. Follow-up bone scan done on 01/29/2019 reported no evidence of bone metastases and CT scan of abdomen pelvis done on 01/29/2019 reported status Post prostatectomy, no evidence of pelvic or retroperitoneal lymphadenopathy. CT PET scan done on 03/19/2019 showed prostate bed recurrence and urinary bladder involvement and PSA checked done 03/26/2019 is 26.79 Started on ADT with Casodex/Zoladex on 04/01/2019 concurrent radiation therapy to the prostate bed was added on 04/15/2019 and f/u PSA on 04/30/2019 was 2.58 compared to pretreatment PSA 26.7 On 03/26/2019 Continued on Zoladex till 04/14/2021, at that time because of severe hot flashes and mood swings, at patient request Zoladex was discontinued. Came for follow-up, denies any specific complaints except episode of TIA since his last visit as per patient he did develop generalized weakness and fatigue more on the left side and while he was watching he noticed 4 TVs and he was taken to [facility] where he underwent CT scan of head it was unremarkable carotid Doppler study showed 25% plaque and as per patient he was treated with aspirin, Plavix. And recently developed blood clot in the urine, for which he is being evaluated by Dr. Markham, patient is scheduled to see him today. Denies any new bony pains, denies any fever or chills, significant improvement in hot flashes, and in his mood swings since he is off Zoladex.. As per patient he has better quality of life now. Medications: Ascorbic Acid 1 Tablet (of 1000 mg) Oral daily, Aspirin 1 Tablet (of 325 mg) Tablet, enteric coated Oral daily, AZO Urinary Pain Relief 1 Tablet (of 95 mg) Tablet Oral daily PRN, Calcium + D3 1 Tablet (of 600-800 mg - Units) Oral daily, Cholecalciferol 1 Capsule (of 4000 Units) Oral daily, Lopid 1 Tablet (of 600 mg) Oral b.i.d., Men 50 plus multivitamin Tablet, Metoprolol Succinate ER 1 Tablet (of 50 mg) Tablet SR 24 HR Oral daily, Norvasc 1 Tablet (of 5 mg) Oral daily, Plavix Tablet Oral, Potassium Chloride Jodi ER 2 Tablet (of 20 meq) Tablet, controlled release Oral b.i.d., Probiotic oral 1 Tablet daily, Vitamin E 1 Capsule (of 400 Units) Oral daily, Zantac 1 Tablet (of 300 mg) Oral daily, Zocor 1 Tablet (of 20 mg) Oral at bedtime Allergies: chocolate Review of Systems: Review of Systems is not available for this patient. Vital Signs: Performed on Oct 29, 2021 09:25 Height - 68.00 in Weight - 187 lbs (HIGH) BSA - 1.99 sq.m BMI - 28.43 Temperature - 97.7 F (LOW) Pulse - 61 /min Respiration - 18 /min BP - 176/79 mm(hg) (HIGH) O2 Sat - 98 % Pain - 0 Fatigue - 7 Performance Status: 0 - Fully active, able to carry on all predisease activities without restrictions. (ECOG) Physical Examination: ENMT - No mouth sores, no thrush, no jaundice, Respiratory - Lungs are clear to auscultation, Cardiovascular - Regular rate and rhythm of heart, Abdomen - Soft, bowel sounds present, Extremities - No visible edema. Lab/Imaging: Most recent lab results are not available for this patient. Impression: History of prostrate cancer status post retropubic prostatectomy in 2004 at that time no adjuvant therapy was considered. Now with biochemical recurrence with elevated PSA level and normal bone scan and CT scan of abdomen pelvis PSA checked on 02/27/2018 was 20.7 and bone scan done on 11/24/2017 showed no evidence of bone metastases CT scan of abdomen pelvis done on 03/08/2018 showed no evidence of pelvic lymphadenopathy or local recurrence CT PET scan done on 03/19/2019 showed there is intense FDG uptake in the central portion of the prostate, including prosthetic urethra, posterior aspect of the urinary bladder to the right of the midline and in the anterior aspect of urinary bladder maximum SUV of urinary bladder focuses 6.32 posteriorly and 5.40 superior and prostrate bed 6.79 PSA checked on 03/26/2019 has gone up to 26.79 compared to 23.19 on 01/29/2019 and 18.10 on 05/31/2018 Started on neoadjuvant Casodex/Zoladex on 04/01/2019 and concurrent radiation therapy to the prostate bed added on 04/15/2019 and a follow-up PSA done on 04/30/2019 showed excellent response, it was 2.58 compared to 26.7 On 03/26/2019 Casodex was used to prevent tumor flare and was discontinued after one month on 04/30/2019 to minimize ADT related toxicity, Was continued on 3 monthly Zoladex, which was discontinued after 04/14/2021, at patient's request due to severe hot flashes and mood swings which was interfering with his quality of life. Plan: Discussed with patient regarding his labs white blood count 4.6 hemoglobin 13.7 hematocrit 40.2 platelets 243,000, PSA 0.30 compared to 0.31 on 07/28/2021 and 0.055 on 04/14/2021 Clinically, patient is doing well with no new signs symptom suggestive of recurrence of disease, his follow-up labs shows PSA is 0.030 compared to 0.031 in July 2021, patient received last dose of Zoladex on 04/14/2021 and at that time because of severe hot flashes and mood swings, it was discontinued at patient's request, now being monitored and his follow-up PSA shows stable values while he is off Zoladex. We will continue to monitor and he will return to clinic in 3 months with PSA As far as episode of hematuria/blood clot in urine is concerned, now being evaluated by urology. Signed By: Louis Castillo M.D. <<Signature on File>>
== END 2021-10-29 07:49 | disposition home or self-care (01) ==
PROVIDERS: PCP Family Medicine; Visit Provider Internal Medicine Hematology & Oncology
DX: Z08 Encounter for follow-up examination after completed treatment for malignant neoplasm (principal); Z85.46 Personal history of malignant neoplasm of prostate
CPT/HCPCS: 36415; 81003; 84153; 99214

== ENCOUNTER 2022-02-03 11:28 | Outpatient (CLI) | payer MEDICARE, SELFPAY ==
[2022-02-03 12:38] LABS: Prostate Specific Antigen 0.028 ng/mL (0-4)
--- NOTE | 2022-02-03 16:51 | ONC FU_ITS ---
Dr. Castillo follow up note Patient: Toney Rodriguez Unit #: [id number]: 1940 Dicatated By: Louis Castillo M.D.Date of Visit:Feb 03, 2022 Onc Med Follow-up/Prog Note History of Present Illness: Mr. Rodriguez is a 81-year-old gentleman with history of prostate cancer initially diagnosed in 2004. At that time, he underwent retropubic prostatectomy and no further treatment was considered. He had observation alone and he did well until March 2017. He developed abdominal pain and was diagnosed with acute appendicitis for which he underwent appendicectomy. His preop labs included a PSA and it showed his PSA was 3 compared to 1 earlier. He was referred to Dr. Markham and he was observed in urology clinic with serial PSA levels and LUDY on a regular basis. In June 2017, his PSA was 7.4 and on 09/29/2017 his PSA was 10.2. Repeat PSA on 10/05/2017 was 13.3 and on 02/27/2018 his PSA gone up to 20.7 with normal LUDY. A CT scan of abdomen pelvis was ordered and reported no pelvic lymphadenopathy, no osteoblastic or osteolytic bone disease. On 11/24/2017 he had a bone scan done which reported no evidence of bone metastases. Elevated PSA but stable and he continued with active surveillance. Follow-up bone scan done on 01/29/2019 reported no evidence of bone metastases and CT scan of abdomen pelvis done on 01/29/2019 reported status Post prostatectomy, no evidence of pelvic or retroperitoneal lymphadenopathy. CT PET scan done on 03/19/2019 showed prostate bed recurrence and urinary bladder involvement and PSA checked done 03/26/2019 is 26.79 Started on ADT with Casodex/Zoladex on 04/01/2019 concurrent radiation therapy to the prostate bed was added on 04/15/2019 and f/u PSA on 04/30/2019 was 2.58 compared to pretreatment PSA 26.7 On 03/26/2019 Continued on Zoladex till 04/14/2021, at that time because of severe hot flashes and mood swings, at patient request Zoladex was discontinued. Came for follow-up, denies any specific complaints, no fever or chills, no nausea or vomiting, no diarrhea constipation, no night sweats, no hot flashes, no peripheral lymphadenopathy, no dysuria or hematuria, appetite is good. As per patient he is moving to [place], close to his family and when he gets there he will find another medical oncologist and urologist for follow-up. Medications: Ascorbic Acid 1 Tablet (of 1000 mg) Oral daily, Aspirin 1 Tablet (of 325 mg) Tablet, enteric coated Oral daily, AZO Urinary Pain Relief 1 Tablet (of 95 mg) Tablet Oral daily PRN, Calcium + D3 1 Tablet (of 600-800 mg - Units) Oral daily, Cholecalciferol 1 Capsule (of 4000 Units) Oral daily, Lopid 1 Tablet (of 600 mg) Oral b.i.d., Men 50 plus multivitamin Tablet, Metoprolol Succinate ER 1 Tablet (of 50 mg) Tablet SR 24 HR Oral daily, Norvasc 1 Tablet (of 5 mg) Oral daily, Plavix Tablet Oral, Potassium Chloride Jodi ER 2 Tablet (of 20 meq) Tablet, controlled release Oral b.i.d., Probiotic oral 1 Tablet daily, Vitamin E 1 Capsule (of 400 Units) Oral daily, Zantac 1 Tablet (of 300 mg) Oral daily, Zocor 1 Tablet (of 20 mg) Oral at bedtime Allergies: chocolate Review of Systems: Review of Systems is not available for this patient. Vital Signs: Performed on Feb 03, 2022 13:16 Height - 68.00 in Weight - 189.0 lbs (HIGH) BSA - 2.00 sq.m BMI - 28.74 Temperature - 98.0 F (LOW) Pulse - 70 /min Respiration - 18 /min BP - 162/77 mm(hg) (HIGH) O2 Sat - 96 % Pain - 0 Fatigue - 9 Performance Status: 0 - Fully active, able to carry on all predisease activities without restrictions. (ECOG) Physical Examination: ENMT - Denies any mouth sores, Respiratory - Denies any shortness of breath, Cardiovascular - Denies any palpitation, Abdomen - Denies any abdominal pain, Extremities - No visible edema. Lab/Imaging: Most recent lab results are not available for this patient. Impression: History of prostrate cancer status post retropubic prostatectomy in 2004 at that time no adjuvant therapy was considered. Now with biochemical recurrence with elevated PSA level and normal bone scan and CT scan of abdomen pelvis PSA checked on 02/27/2018 was 20.7 and bone scan done on 11/24/2017 showed no evidence of bone metastases CT scan of abdomen pelvis done on 03/08/2018 showed no evidence of pelvic lymphadenopathy or local recurrence CT PET scan done on 03/19/2019 showed there is intense FDG uptake in the central portion of the prostate, including prosthetic urethra, posterior aspect of the urinary bladder to the right of the midline and in the anterior aspect of urinary bladder maximum SUV of urinary bladder focuses 6.32 posteriorly and 5.40 superior and prostrate bed 6.79 PSA checked on 03/26/2019 has gone up to 26.79 compared to 23.19 on 01/29/2019 and 18.10 on 05/31/2018 Started on neoadjuvant Casodex/Zoladex on 04/01/2019 and concurrent radiation therapy to the prostate bed added on 04/15/2019 and a follow-up PSA done on 04/30/2019 showed excellent response, it was 2.58 compared to 26.7 On 03/26/2019 Casodex was used to prevent tumor flare and was discontinued after one month on 04/30/2019 to minimize ADT related toxicity, Was continued on 3 monthly Zoladex, which was discontinued after 04/14/2021, at patient's request due to severe hot flashes and mood swings which was interfering with his quality of life. Plan: .Discussed with patient regarding his labs PSA is 0.028 compared to 0.030 previously Clinically, patient doing well with no new signs symptom suggestive of recurrence of disease, his lab work-up is within normal range and stable. Patient is moving to [place], close to his family and patient was advised to find urologist for medical oncologist in his new place and we will send his record. Signed By: Louis Castillo M.D. <<Signature on File>>
== END 2022-02-03 11:29 | disposition home or self-care (01) ==
PROVIDERS: PCP Family Medicine; Visit Provider Internal Medicine Hematology & Oncology
DX: Z85.46 Personal history of malignant neoplasm of prostate (principal); R97.20 Elevated prostate specific antigen [PSA]
CPT/HCPCS: 36415; 84153; 99214